=== PATIENT | female | born 1975 | race Caucasian/White ===

== ENCOUNTER 2017-11-16 08:31 | Inpatient (IN) | payer MEDICARE ==
[2017-11-16] MEDS ORDERED: CEFAZOLIN 1 GM/D5W RTU 1 GM/50 ML RTUPB IV ONE (08:36)
[2017-11-16] MEDS ORDERED: DIPH/PERTUSS(ACELL)/TETANUS VAC/PF 0.5 ML SYR (>=10YO) IM ONE (08:36)
--- NOTE | 2017-11-16 09:32 | ER Document Report ---
ED General - General Chief Complaint: Unresponsive Stated Complaint: UNRESPONSIVE Time Seen by Provider: 11/16/17 08:35 Mode of Arrival: Medic Information source: Law Enforcement, Emergency Med Personnel Cannot obtain history due to: Unstable vital signs, Altered mental status Notes: 50-year-old female noted to be a Yaritza Medina found on the side of the road core temp 84 presents confused by EMS. Patient is noted to have extensive abrasions contusions all throughout - HPI Onset: Just prior to arrival Onset/Duration: Sudden Quality of pain: No pain Severity: Severe Associated symptoms: Other Exacerbated by: Denies Relieved by: Denies Similar symptoms previously: No Recently seen / treated by doctor: No - Related Data Allergies/Adverse Reactions: No Known Allergies Allergy (Verified 11/16/17 12:36) Past Medical History - Social History Smoking Status: Never Smoker Cigarette use (# per day): No Chew tobacco use (# tins/day): No Smoking Education Provided: No Family History: None Patient has suicidal ideation: No Patient has homicidal ideation: No Renal/ Medical History: Denies: Hx Peritoneal Dialysis Review of Systems - Review of Systems Notes: PHYSICAL EXAMINATION: GENERAL: Cold to touch altered HEAD: Atraumatic, normocephalic. EYES: Pupils equal round and reactive to light, extraocular movements intact, conjunctiva are normal. ENT: Nares patent, oropharynx clear without exudates. Moist mucous membranes. NECK: Normal range of motion, supple without lymphadenopathy LUNGS: Breath sounds clear to auscultation bilaterally and equal. No wheezes rales or rhonchi. HEART: Regular rate and rhythm without murmurs ABDOMEN: Soft, nontender, nondistended abdomen. No guarding, no rebound. No masses appreciated. Female : deferred Musculoskeletal: Normal range of motion, no pitting or edema. No cyanosis. NEUROLOGICAL: Cranial nerves grossly intact. Patient not following commands normal sensory, motor exams PSYCH: Unable to assess. SKIN: Extensive abrasions contusions all throughout -: Yes ROS unobtainable due to patient's medical condition Physical Exam - Vital signs Vitals: Pulse Ox 98 11/16/17 08:33 Course - Re-evaluation Re-evalutation: 11/16/17 09:32 I have asked patient to be restrained given how altered she is, warm IV fluids have been started heating pad bear hugger heated blankets as well. Brumfield tem has been ordered 11/16/17 14:04 Patient's temperature is improved significantly, she is becoming more alert and oriented, please have seen her multiple times, she has been admitted to the hospitalist service, antibiotics have been started for urinary tract infection but I believe this may be drug related. Patient is noted to be in rhabdo and IV fluids have been given 4 liters 11/16/17 14:04 - Vital Signs Vital signs: Temp Pulse Resp BP Pulse Ox 86.5 F L 140 H 25 H 122/85 100 11/16/17 08:40 11/16/17 08:40 11/16/17 13:30 11/16/17 13:01 11/16/17 13:30 - Laboratory Result Diagrams: 11/16/17 08:38 11/16/17 08:38 Laboratory results interpreted by me: 11/16/17 11/16/17 11/16/17 08:38 08:38 08:38 WBC 31.4 H* RDW 14.6 H Band Neutrophils % 7 H Lymphocytes % (Manual) 6 L Abs Neuts (Manual) 26.4 H Abs Monocytes (Manual) 2.8 H Chloride 110 H Carbon Dioxide 15 L Creatinine 1.30 H Est GFR ( Amer) 52 L Est GFR (Non-Af Amer) 43 L Glucose 56 L AST 109 H Alkaline Phosphatase 136 H Creatine Kinase 3904 H CK-MB (CK-2) 18.30 H Urine Protein Urine Ketones Urine Blood Urine Nitrite 11/16/17 08:38 WBC RDW Band Neutrophils % Lymphocytes % (Manual) Abs Neuts (Manual) Abs Monocytes (Manual) Chloride Carbon Dioxide Creatinine Est GFR ( Amer) Est GFR (Non-Af Amer) Glucose AST Alkaline Phosphatase Creatine Kinase CK-MB (CK-2) Urine Protein 100 H Urine Ketones TRACE H Urine Blood MODERATE H Urine Nitrite POSITIVE H - Diagnostic Test Radiology reviewed: Image reviewed, Reports reviewed Critical Care Note - Critical Care Note Total time excluding time spent on procedures (mins): 45 Comments: 45 minutes of critical care time spent in direct contact evaluating and reevaluating the patient, treating symptoms, reviewing labs and studies and speaking with family and consultants excluding any procedures Discharge - Discharge Clinical Impression: Altered awareness, transient, Tachycardia Hypothermia Qualifiers: Encounter type: initial encounter Qualified Code(s): T68.XXXA - Hypothermia, initial encounter Acute renal failure Qualifiers: Acute renal failure type: unspecified Qualified Code(s): N17.9 - Acute kidney failure, unspecified Rhabdomyolysis Qualifiers: Rhabdomyolysis type: non-traumatic Qualified Code(s): M62.82 - Rhabdomyolysis Condition: Fair Disposition: ADMITTED INPATIENT Admitting Provider: Hospitalist Unit Admitted: [facility]
[2017-11-16] MEDS: NORMAL SALINE 1000 ML 1,000 ML IV PRN ×6 (09:47→13:45)
[2017-11-16 09:56] LABS: HEMATOCRIT 43.9 % (36.0-47.0); HEMOGLOBIN 14.2 g/dL (12.0-15.5); MEAN CORPUSCULAR HEMOGLOBIN 29.9 pg (27.0-33.4); MEAN CORPUSCULAR HGB CONC 32.4 g/dL (32.0-36.0); MEAN CORPUSCULAR VOLUME 92 fl (80-97); PLATELET COUNT 382 10^3/uL (150-450); RED BLOOD COUNT 4.76 10^6/uL (3.72-5.28); RED CELL DISTRIBUTION WIDTH 14.6 % (11.5-14.0)
[2017-11-16 10:11] LABS: ABSOLUTE LYMPHOCYTES# (MANUAL) 2.2 10^3/uL (0.5-4.7); ABSOLUTE MONOCYTES # (MANUAL) 2.8 10^3/uL (0.1-1.4); ABSOLUTE NEUTROPHILS# (MANUAL) 26.4 10^3/uL (1.7-8.2); BAND NEUTROPHILS % (MANUAL) 7 % (3-5); BASOPHILS % (MANUAL) 0 % (0-2); EOSINOPHILS % (MANUAL) 0 % (0-6); LYMPHOCYTES % (MANUAL) 6 % (13-45); MONOCYTES % (MANUAL) 9 % (3-13); SEGMENTED NEUTROPHILS % (MAN) 77 % (42-78); TOTAL CELLS COUNTED 100
[2017-11-16 10:12] LABS: ALANINE AMINOTRANSFERASE 46 U/L (9-52); ALBUMIN 4.9 g/dL (3.5-5.0); ALKALINE PHOSPHATASE 136 U/L (38-126); ANION GAP 19 (5-19); ASPARTATE AMINO TRANSFERASE 109 U/L (14-36); BILIRUBIN,DIRECT 0.4 mg/dL (0.0-0.4); BILIRUBIN,TOTAL 0.7 mg/dL (0.2-1.3); BLOOD UREA NITROGEN 10 mg/dL (7-20); CALCIUM 9.3 mg/dL (8.4-10.2); CARBON DIOXIDE 15 mmol/L (22-30); CHLORIDE 110 mmol/L (98-107); GLUCOSE 56 mg/dL (75-110); PLATELET COMMENT ADEQUATE; POTASSIUM 3.6 mmol/L (3.6-5.0); RBC MORPHOLOGY COMMENT NORMO-CYTIC/CHROMIC; SODIUM 143.9 mmol/L (137-145); TOTAL PROTEIN 8.1 g/dL (6.3-8.2)
[2017-11-16 10:13] LABS: APPEARANCE,URINE SLIGHTLY-CLOUDY; BILIRUBIN,URINE NEGATIVE (NEGATIVE); COLOR,URINE YELLOW; GLUCOSE, URINE NEGATIVE (NEGATIVE); KETONES,URINE TRACE mg/dL (NEGATIVE); LEUKOCYTE ESTERASE,URINE NEGATIVE (NEGATIVE); NITRITE,URINE POSITIVE (NEGATIVE); PROTEIN,URINE 100 mg/dL (NEGATIVE); URINE SPECIFIC GRAVITY 1.009; UROBILINOGEN,URINE NEGATIVE mg/dL (<2.0); WHITE BLOOD COUNT 31.4 10^3/uL (4.0-10.5)
[2017-11-16] MEDS ORDERED: CEFTRIAXONE INJ 1000 MG VIAL IV ONE (10:18)
[2017-11-16 10:23] LABS: CREATINE KINASE MB 18.3 ng/mL (<4.55); TROPONIN I 0.027 ng/mL
[2017-11-16 10:36] LABS: ALCOHOL < 10 mg/dL (NONE DETECTED); CREATINE KINASE 3904 U/L (30-135)
[2017-11-16 10:53] LABS: URINE AMPHETAMINES SCREEN NEGATIVE; URINE BARBITURATES SCREEN NEGATIVE; URINE BENZODIAZEPINES SCREEN NEGATIVE; URINE COCAINE SCREEN NEGATIVE; URINE MARIJUANA (THC) SCREEN UNCONFIRMED POSITIVE; URINE METHADONE SCREEN NEGATIVE; URINE PHENCYCLIDINE SCREEN NEGATIVE
--- NOTE | 2017-11-16 11:07 | RADIOLOGY REPORT (SQ) ---
EXAM DESCRIPTION: CT HEAD WITHOUT COMPLETED DATE/TIME: 11/16/2017 10:57 am REASON FOR STUDY: found altered, extensive injuries COMPARISON: None. TECHNIQUE: Axial images acquired through the brain without intravenous contrast. Images reviewed wi th bone, brain and subdural windows. Images stored on PACS. All CT scanners at this facility use dose modulation, iterative reconstruction, and/or weight based d osing when appropriate to reduce radiation dose to as low as reasonably achievable (ALARA). [facility]: Dose Right [facility]: CareDose [facility]: Dose Right [facility]: Teradose 4D [facility]: [employer] RADIATION DOSE: CT Rad equipment meets quality standard of care and radiation dose reduction techniq ues were employed. CTDIvol: 64.6 mGy. DLP: 1163 mGy-cm. mGy. LIMITATIONS: None. FINDINGS: VENTRICLES: Normal size and contour. CEREBRUM: No masses. No hemorrhage. No midline shift. No evidence for acute infarction. Normal gra y/white matter differentiation. No areas of low density in the white matter. CEREBELLUM: No masses. No hemorrhage. No alteration of density. No evidence for acute infarction. EXTRAAXIAL SPACES: No fluid collections. No masses. ORBITS AND GLOBE: No intra- or extraconal masses. Normal contour of globe without masses. CALVARIUM: No fracture. PARANASAL SINUSES: No fluid or mucosal thickening. SOFT TISSUES: No mass or hematoma. OTHER: No other significant finding. IMPRESSION: NORMAL BRAIN CT WITHOUT CONTRAST. EVIDENCE OF ACUTE STROKE: NO. COMMENT: Quality ID # [id number]: Final reports with documentation of one or more dose reduction techniques (e.g., Automated exposure control, adjustment of the mA and/or kV according to patient size, use of iterative reconstruction technique) TECHNICAL DOCUMENTATION: JOB ID: [id number] [employer]- All Rights Reserved Reading location - IP/workstation name: [email or web address]
--- NOTE | 2017-11-16 11:09 | RADIOLOGY REPORT (SQ) ---
EXAM DESCRIPTION: CT CERVICAL SPINE WITHOUT COMPLETED DATE/TIME: 11/16/2017 11:00 am REASON FOR STUDY: found altered, extensive injuries COMPARISON: None. TECHNIQUE: Axial images acquired through the cervical spine without intravenous contrast. Images re viewed with lung, soft tissue and bone windows. Reconstructed coronal and sagittal MPR images review ed. Images stored on PACS. All CT scanners at this facility use dose modulation, iterative reconstruction, and/or weight based d osing when appropriate to reduce radiation dose to as low as reasonably achievable (ALARA). [facility]: Dose Right [facility]: CareDose [facility]: Dose Right [facility]: Teradose 4D [facility]: [employer] RADIATION DOSE: CT Rad equipment meets quality standard of care and radiation dose reduction techniq ues were employed. CTDIvol: 26.1 mGy. DLP: 555 mGy-cm. mGy. LIMITATIONS: None. FINDINGS: ALIGNMENT: Reversal of lordotic curve. MINERALIZATION: Normal. VERTEBRAL BODIES: No fractures or dislocation. DISCS: Multilevel disc space narrowing with osteophytes. FACETS, LATERAL MASSES, POSTERIOR ELEMENTS: Facet arthropathy. No fractures. No dislocation. No ac [place] findings. HARDWARE: None in the spine. VISUALIZED RIBS: No fractures. LUNG APICES AND SOFT TISSUES: No significant or acute findings. OTHER: No other significant finding. IMPRESSION: CHRONIC DEGENERATIVE CHANGES. NO ACUTE FINDINGS. TECHNICAL DOCUMENTATION: JOB ID: [id number] Quality ID # [id number]: Final reports with documentation of one or more dose reduction techniques (e.g., Au tomated exposure control, adjustment of the mA and/or kV according to patient size, use of iterative reconstruction technique) 2010 [employer]- All Rights Reserved Reading location - IP/workstation name: [email or web address]
--- NOTE | 2017-11-16 11:27 | RADIOLOGY REPORT (SQ) ---
EXAM DESCRIPTION: CT CHEST WITH COMPLETED DATE/TIME: 11/16/2017 11:13 am REASON FOR STUDY: found altered, extensive injuries COMPARISON: None. TECHNIQUE: CT scan of the chest performed using helical scanning technique with dynamic intravenous contrast injection. Images reviewed with lung, soft tissue and bone windows. Reconstructed coronal and sagittal MPR images reviewed. All images stored on PACS. All CT scanners at this facility use dose modulation, iterative reconstruction, and/or weight based d osing when appropriate to reduce radiation dose to as low as reasonably achievable (ALARA). [facility]: Dose Right [facility]: CareDose [facility]: Dose Right [facility]: Teradose 4D [facility]: [employer] CONTRAST TYPE AND DOSE: See separate report. RENAL FUNCTION: See separate report. RADIATION DOSE: . LIMITATIONS: None. FINDINGS: LUNGS AND PLEURA: No opacities, nodules, masses. No pneumothorax. No effusions. HILAR AND MEDIASTINAL STRUCTURES: No identified masses or abnormal nodes. HEART AND VASCULAR STRUCTURES: No aneurysm or dissection. No central pulmonary emboli. No pericardi al effusion. HARDWARE: None in the chest. UPPER ABDOMEN: See separate report of the CT of the abdomen. THYROID AND OTHER SOFT TISSUES: No masses. No adenopathy. BONES: Several chronic rib fractures. No definite acute rib fracture. OTHER: No other significant finding. IMPRESSION: No acute findings in the chest. TECHNICAL DOCUMENTATION: JOB ID: [id number] Quality ID # [id number]: Final reports with documentation of one or more dose reduction techniques (e.g., Au tomated exposure control, adjustment of the mA and/or kV according to patient size, use of iterative reconstruction technique) 2010 [employer]- All Rights Reserved Reading location - IP/workstation name: [email or web address]
--- NOTE | 2017-11-16 11:31 | RADIOLOGY REPORT (SQ) ---
EXAM DESCRIPTION: CT ABD/PELVIS WITH IV ONLY COMPLETED DATE/TIME: 11/16/2017 11:13 am REASON FOR STUDY: found altered, extensive injuries COMPARISON: None. TECHNIQUE: CT scan of the abdomen and pelvis performed using helical scanning technique with dynamic intravenous contrast injection. No oral contrast. Images reviewed with lung, soft tissue, and bone windows. Reconstructed coronal and sagittal MPR images reviewed. Delayed images for evaluation of the urinary system also acquired. All images stored on PACS. All CT scanners at this facility use dose modulation, iterative reconstruction, and/or weight based d osing when appropriate to reduce radiation dose to as low as reasonably achievable (ALARA). [facility]: Dose Right [facility]: CareDose [facility]: Dose Right [facility]: Teradose 4D [facility]: [employer] CONTRAST TYPE AND DOSE: contrast/concentration: Isovue 370.00 mg/ml; Total Contrast Delivered: 100.0 ml; Total Saline Delivered: 72.0 ml RENAL FUNCTION: GFR > 60. RADIATION DOSE: CT Rad equipment meets quality standard of care and radiation dose reduction techniq ues were employed. CTDIvol: 18.0 - 20.9 mGy. DLP: 2451 mGy-cm.. LIMITATIONS: None. FINDINGS: LOWER CHEST: See separate report of the CT of the chest. LIVER: Normal size. No masses. No dilated ducts. SPLEEN: Normal size. No focal lesions. PANCREAS: No masses. No significant calcifications. No adjacent inflammation or peripancreatic fluid collections. Pancreatic duct not dilated. GALLBLADDER: No identified stones by CT criteria. No inflammatory changes to suggest cholecystitis. ADRENAL GLANDS: No significant masses or asymmetry. RIGHT KIDNEY AND URETER: No solid masses. No significant calcifications. No hydronephrosis or hyd roureter. LEFT KIDNEY AND URETER: No solid masses. No significant calcifications. No hydronephrosis or hydr oureter. AORTA AND VESSELS: No aneurysm. No dissection. Renal arteries, SMA, celiac without stenosis. RETROPERITONEUM: No retroperitoneal adenopathy, hemorrhage or masses. BOWEL AND PERITONEAL CAVITY: No masses or inflammatory changes. No free fluid or peritoneal masses. APPENDIX: Normal. PELVIS: Brumfield catheter in the urinary bladder. ABDOMINAL WALL: No masses. No hernias. BONES: No significant or acute findings. OTHER: No other significant finding. IMPRESSION: No acute findings in the abdomen or pelvis. TECHNICAL DOCUMENTATION: JOB ID: [id number] Quality ID # [id number]: Final reports with documentation of one or more dose reduction techniques (e.g., Au tomated exposure control, adjustment of the mA and/or kV according to patient size, use of iterative reconstruction technique) 2010 [employer]- All Rights Reserved Reading location - IP/workstation name: [email or web address]
[2017-11-16] MEDS ORDERED: IPRATROPIUM/ALBUTEROL 0.5-2.5 MG/3 ML AMPUL NEB PRN (14:54)
[2017-11-16] MEDS ORDERED: DEXTROSE 5%-1/2 NORMAL SALINE 1,000 ML IV PRN (14:54)
[2017-11-16] MEDS ORDERED: ONDANSETRON HCL INJ/PF 4 MG/2 ML SDV IV PRN (14:54)
--- NOTE | 2017-11-16 15:36 | PDOC H&P ---
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 Minutes Elimination Elimination Elimination Position Change Q 15 Minutes Yes Level of Consciousness-Check Q 15 Confused Confused Minutes 11/16/17 11/16/17 11/16/17 10:00 10:15 10:30 Violent Behavior Restraint Status Continued Continued Continued Nursing Unit Patient is Located On ED ED ED Indications for Initiating Restraints Dangerous Physical Harm Physical Harm Behavior to Self to Self Type of Restraint Locking Cuff Locking Cuff Locking Cuff Restraint Restraint Restraint Unsuccessful measures attempted Increased Increased supervision supervision Reduces stimuli Reduces stimuli Information on Use of Restraints Given No-Patient To Impaired No-Family Unavailable Restraints Intact-Check Q 15 Minutes Yes Yes Yes Visual Assessment-Check Q 15 Minutes Yes Yes Yes Respirations WNL-Check Q 15 Minutes Yes Yes Yes Skin Integrity Inspected Q 15 Minutes Yes Yes Yes CMS Check of Restrained Limbs Q 15 Yes Yes Yes Minutes Rotate Restrained Release for ROM Q 15 Yes Yes Yes Minutes if Possible ADL's Offered Q 15 Minutes Yes Yes Yes ADL's Offered Q 15 Minutes Elimination Elimination Elimination Position Change Q 15 Minutes Yes Level of Consciousness-Check Q 15 Confused Confused Confused Minutes 11/16/17 11/16/17 10:45 11:00 Violent Behavior Restraint Status Continued Discontinued Nursing Unit Patient is Located On ED ED Indications for Initiating Restraints Physical Harm to Self Type of Restraint Locking Cuff Locking Cuff Restraint Restraint Unsuccessful measures attempted Increased supervision Reduces stimuli Information on Use of Restraints Given No-Patient To Impaired No-Family Unavailable Restraints Intact-Check Q 15 Minutes Yes Visual Assessment-Check Q 15 Minutes Yes Respirations WNL-Check Q 15 Minutes Yes Skin Integrity Inspected Q 15 Minutes Yes CMS Check of Restrained Limbs Q 15 Yes Minutes Rotate Restrained Release for ROM Q 15 Yes Minutes if Possible ADL's Offered Q 15 Minutes Yes ADL's Offered Q 15 Minutes Position Change Q 15 Minutes Yes Level of Consciousness-Check Q 15 Confused Minutes Status Rounds Assessment Start: 11/16/17 09:14 Freq: Q1 Status: Active Activity Type Activity Date Activity User E-Sign Co-Sign Detail Recorded Client Recorded Date Recorded By Document 11/16/17 12:07 DOX [email or web address] 11/16/17 12:09 DOX Document 11/16/17 14:29 DOX [email or web address] 11/16/17 14:31 DOX 11/16/17 11/16/17 12:07 14:29 ED Status Rounds Hourly Rounding Complete Yes Yes Call [place] within Reach Yes Yes Patient Location Patient in Room Patient in Room Other Location given PO fluids Patient Activity Resting Awake Peacefully Patient Condition No Changes From Previous Assessment 11/16/17 12:08 ED Nursing Note by SHEFALI VERGARA pt removed from restraints, states she wont mess woth tubes, pt given PO fluids , tolerated well, pt updated on admission, states she understand, cooperative and calm at this time,, remains on monitor. Initialized on 11/16/17 12:08 - END OF NOTE 11/16/17 14:29 ED Nursing Note by SHEFALI VERGARA Hospitalist leaving BS at this time, pt alert and cooperative warm fluids DC'd, pt remains on monitor, pt still intermittently confused, but able to hold conversation, pt is delusional. Initialized on 11/16/17 14:29 - END OF NOTE [employer] Start: 11/16/17 09:14 Freq: Status: Active Activity Type Activity Date Activity User E-Sign Co-Sign Detail Recorded Client Recorded Date Recorded By Document 11/16/17 08:33 DOX [email or web address] 11/16/17 09:34 DOX Document 11/16/17 08:34 DOX [email or web address] 11/16/17 09:34 DOX Document 11/16/17 08:35 DOX [email or web address] 11/16/17 09:34 DOX Document 11/16/17 09:03 DOX [email or web address] 11/16/17 09:34 DOX Document 11/16/17 09:06 DOX [email or web address] 11/16/17 09:34 DOX Document 11/16/17 09:07 DOX [email or web address] 11/16/17 09:34 DOX Document 11/16/17 09:10 DOX [email or web address] 11/16/17 09:34 DOX Document 11/16/17 09:11 DOX [email or web address] 11/16/17 09:34 DOX Document 11/16/17 10:00 DOX [email or web address] 11/16/17 10:44 DOX Document 11/16/17 10:01 DOX [email or web address] 11/16/17 10:44 DOX Document 11/16/17 11:17 DOX [email or web address] 11/16/17 11:30 DOX Document 11/16/17 11:25 DOX [email or web address] 11/16/17 11:30 DOX Document 11/16/17 11:26 DOX [email or web address] 11/16/17 11:30 DOX Document 11/16/17 12:00 DOX [email or web address] 11/16/17 12:07 DOX Document 11/16/17 12:01 DOX [email or web address] 11/16/17 12:07 DOX Document 11/16/17 12:30 DOX [email or web address] 11/16/17 12:34 DOX Document 11/16/17 13:00 DOX [email or web address] 11/16/17 13:37 DOX Document 11/16/17 13:01 DOX [email or web address] 11/16/17 13:37 DOX Document 11/16/17 13:30 DOX [email or web address] 11/16/17 13:37 DOX 11/16/17 11/16/17 11/16/17 08:33 08:34 08:35 Core Temperature (97.0 F-100.4 F) Heart Rate (Monitors) 141 ED Monitor Capture Respiratory Rate (12-20 breaths/min) 29 33 Pulse Oximetry (92-100) 98 100 Blood Pressure (100/60-125/85 mm Hg) 116/99 Blood Pressure Mean (mm Hg) 104 11/16/17 11/16/17 11/16/17 09:03 09:06 09:07 Core Temperature (97.0 F-100.4 F) Heart Rate (Monitors) 155 156 156 ED Monitor Capture Respiratory Rate (12-20 breaths/min) 41 34 35 Pulse Oximetry (92-100) Blood Pressure (100/60-125/85 mm Hg) Blood Pressure Mean (mm Hg) 11/16/17 11/16/17 11/16/17 09:10 09:11 10:00 Core Temperature (97.0 F-100.4 F) 92.4 F Heart Rate (Monitors) 155 136 138 ED Monitor Capture Respiratory Rate (12-20 breaths/min) 28 21 15 Pulse Oximetry (92-100) 99 Blood Pressure (100/60-125/85 mm Hg) 124/79 Blood Pressure Mean (mm Hg) 94 11/16/17 11/16/17 11/16/17 10:01 11:17 11:25 Core Temperature (97.0 F-100.4 F) 92.5 F 95.7 F Heart Rate (Monitors) 146 140 144 ED Monitor Capture Respiratory Rate (12-20 breaths/min) 16 31 Pulse Oximetry (92-100) 99 Blood Pressure (100/60-125/85 mm Hg) 120/65 Blood Pressure Mean (mm Hg) 83 11/16/17 11/16/17 11/16/17 11:26 12:00 12:01 Core Temperature (97.0 F-100.4 F) 95.7 F 96.2 F 96.2 F Heart Rate (Monitors) 151 138 143 ED Monitor Capture Respiratory Rate (12-20 breaths/min) 27 26 22 Pulse Oximetry (92-100) 100 93 99 Blood Pressure (100/60-125/85 mm Hg) 113/81 104/80 Blood Pressure Mean (mm Hg) 91 88 11/16/17 11/16/17 11/16/17 12:30 13:00 13:01 Core Temperature (97.0 F-100.4 F) 96.8 F 97.4 F 97.5 F Heart Rate (Monitors) 142 86 88 ED Monitor Capture Respiratory Rate (12-20 breaths/min) 27 18 26 Pulse Oximetry (92-100) 97 100 100 Blood Pressure (100/60-125/85 mm Hg) 122/85 Blood Pressure Mean (mm Hg) 97 11/16/17 13:30 Core Temperature (97.0 F-100.4 F) 97.7 F Heart Rate (Monitors) 95 ED Monitor Capture Respiratory Rate (12-20 breaths/min) 25 Pulse Oximetry (92-100) 100 Blood Pressure (100/60-125/85 mm Hg) Blood Pressure Mean (mm Hg) Triage- Altered Mental Status Start: 11/16/17 09:14 Freq: NOW Status: Complete Activity Type Activity Date Activity User E-Sign Co-Sign Detail Recorded Client Recorded Date Recorded By Document 11/16/17 08:40 DOX [email or web address] 11/16/17 09:28 DOX 11/16/17 08:40 Shiva Coma Scale Eye Opening Spontaneous Verbal Response Confused Motor Response Obeys Commands Coma Scale Total (15 points) 14 HPI- Altered Mental Status Onset unknown Symptoms Constant Duration Continues in ED Confirmed onset No Character of altered mental status Confused Arousable To Name Was STROKE ALERT Called No Baseline cognitive Alert but confused Baseline gait Walks w/o assistance Infection Control Screen CRE Precaution Screen Negative History Isolation Precautions Standard Triage Nursing Assessment Allergies Verified No Seeking Treatment Today For Mental Health Patient Is there family present? No High Risk Screen Confused High Risk Safety Intervention Patient Door Open Thoughts of by Suicide in the Last No 30 Days Homicidial Thoughts in the Last 30 Days No Suicide Moderate Risk Factors Mental Illness Suicide High Risk Factors Dramatic Mood Changes Smoking Status Unknown if Ever Smoked Medication Reconciliation Form Initiated/Needs Completed Peritoneal Dialysis Patient No Vital Signs (ED) Start: 11/16/17 08:31 Freq: Q1H Status: Active Activity Type Activity Date Activity User E-Sign Co-Sign Detail Recorded Client Recorded Date Recorded By Document 11/16/17 08:40 DOX [email or web address] 11/16/17 09:19 DOX 11/16/17 08:40 Vital Signs Temperature (97.0 F-100.4 F) 86.5 F Peripheral -Pulse Rate (60-100 beats/min) 140 -Method Monitor Respiratory Rate (12-20 breaths/min) 26 Oxygen Delivery Method (includes room Room Air air) Left Upper Arm -Blood Pressure (100/60-125/85 mm Hg) 116/69 -Blood Pressure Mean (mm Hg) 84 -Source Automatic Cuff -Position Supine Weight (1 kg-500 kg) 87.2 kg Impressions: Abdomen/Pelvis CT 11/16/17 08:35 IMPRESSION: No acute findings in the abdomen or pelvis. Cervical Spine CT 11/16/17 08:35 IMPRESSION: CHRONIC DEGENERATIVE CHANGES. NO ACUTE FINDINGS. Chest CT 11/16/17 08:35 IMPRESSION: No acute findings in the chest. Head CT 11/16/17 08:35 IMPRESSION: NORMAL BRAIN CT WITHOUT CONTRAST. EVIDENCE OF ACUTE STROKE: NO. Assessment & Plan - Diagnosis (1) Systemic inflammatory response syndrome (SIRS) Is this a current diagnosis for this admission?: Yes Plan: I have no specific etiology for patient's leukocytosis especially considering that her white count was 7000 yesterday. Be placed on empiric antibiotics after blood cultures drawn. 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 Will follow their recommendations in terms of her medication. I believe this patient's problems, are more psychotic than medical (4) Acute renal failure Qualifiers: Acute renal failure type: unspecified Qualified Code(s): N17.9 - Acute kidney failure, unspecified Is this a current diagnosis for this admission?: Yes Plan: Likely secondary to dehydration this should resolve with adequate IV fluids (5) Hypothermia Qualifiers: Encounter type: initial encounter Qualified Code(s): T68.XXXA - Hypothermia , initial encounter Is this a current diagnosis for this admission?: Yes Plan: Likely secondary to environmental etiology as patient was picked up from outside. She has responded nicely to warming Check thyroid function (6) Rhabdomyolysis Qualifiers: Rhabdomyolysis type: non-traumatic Qualified Code(s): M62.82 - Rhabdomyolysis Is this a current diagnosis for this admission?: Yes Plan: We will monitor CPK and continue judicious IV fluids (7) Tachycardia Is this a current diagnosis for this admission?: Yes Plan: Secondary to dehydration - Time Time Spent: 30 to 50 Minutes Medications reviewed and adjusted accordingly: Yes Anticipated discharge: Home Within: within 72 hours - Inpatient Certification Based on my medical assessment, after consideration of the patient's comorbidities, presenting symptoms, or acuity I expect that the services needed warrant INPATIENT care.: Yes I certify that my determination is in accordance with my understanding of Medicare's requirements for reasonable and necessary INPATIENT services [42 CFR 412.3e].: Yes Medical Necessity: Need For IV Fluids, Risk of Complication if Not Cared For in Hospital
[2017-11-16] MEDS: DEXTROSE 5%-1/2 NORMAL SALINE 1,000 ML IV PRN (17:33)
[2017-11-16] MEDS: FAMOTIDINE 20 MG TABLET PO SCH (22:10)
[2017-11-17] MEDS: DEXTROSE 5%-1/2 NORMAL SALINE 1,000 ML IV PRN (04:25)
[2017-11-17 07:12] LABS: ALANINE AMINOTRANSFERASE 60 U/L (9-52); ALBUMIN 3.5 g/dL (3.5-5.0); ALKALINE PHOSPHATASE 104 U/L (38-126); ANION GAP 10 (5-19); ASPARTATE AMINO TRANSFERASE 107 U/L (14-36); BILIRUBIN,DIRECT 0.1 mg/dL (0.0-0.4); BLOOD UREA NITROGEN 3 mg/dL (7-20); CALCIUM 9.2 mg/dL (8.4-10.2); CARBON DIOXIDE 20 mmol/L (22-30); CHLORIDE 112 mmol/L (98-107); GLUCOSE 106 mg/dL (75-110); POTASSIUM 3.2 mmol/L (3.6-5.0); SODIUM 141.8 mmol/L (137-145); TOTAL PROTEIN 5.6 g/dL (6.3-8.2)
[2017-11-17 07:17] LABS: ABSOLUTE MONOCYTES (AUTO) 0.9 10^3/uL (0.1-1.4); ABSOLUTE NEUT (AUTO) 9.8 10^3/uL (1.7-8.2); BASOPHILS % (AUTO) 0.2 % (0-2); EOSINOPHILS % (AUTO) 0.2 % (0-6); HEMATOCRIT 33.7 % (36.0-47.0); LYMPHOCYTES % (AUTO) 8.5 % (13-45); MEAN CORPUSCULAR HEMOGLOBIN 30.5 pg (27.0-33.4); MEAN CORPUSCULAR HGB CONC 34.1 g/dL (32.0-36.0); MEAN CORPUSCULAR VOLUME 89 fl (80-97); MONOCYTES % (AUTO) 7.3 % (3-13); PLATELET COUNT 254 10^3/uL (150-450); RED BLOOD COUNT 3.78 10^6/uL (3.72-5.28); RED CELL DISTRIBUTION WIDTH 14.6 % (11.5-14.0); SEGMENTED NEUTROPHILS % (AUTO) 83.8 % (42-78); TOTAL CELLS COUNTED % (AUTO) 100 %; WHITE BLOOD COUNT 11.7 10^3/uL (4.0-10.5)
[2017-11-17 07:21] LABS: HEMOGLOBIN 11.5 g/dL (12.0-15.5)
[2017-11-17 07:42] LABS: CREATINE KINASE 4538 U/L (30-135)
[2017-11-17] MEDS: FAMOTIDINE 20 MG TABLET PO SCH (10:12)
[2017-11-17] MEDS: DOCUSATE SODIUM 100 MG CAPSULE PO SCH (10:12)
[2017-11-17] MEDS: CEFTRIAXONE 2 GM/D5W RTU 2 GM/50 ML RTUPB IV SCH (10:13)
[2017-11-17] MEDS: ENOXAPARIN SODIUM INJ 40 MG/0.4 ML DISP.SYRIN SUBCUT SCH (10:15)
[2017-11-17] MEDS: OLANZAPINE 5 MG TAB.RAPDIS PO SCH (15:30)
--- NOTE | 2017-11-17 15:42 | PDOC PROGRESS REPORT ---
Subjective Progress Note for:: 11/17/17 Subjective:: Patient awake and alert but says she is still confused and unable to remember any preceding events or recent events She remained stable during the night and no new issues for now Reason For Visit: ENCEPHALOPATHY,PSYCHOSIS,LEUKOCYTOSIS,HYPOTHERMIA Physical Exam Vital Signs: Temp Pulse Resp BP Pulse Ox 98.9 F 89 30 H 109/80 98 11/17/17 02:07 11/17/17 08:39 11/17/17 14:01 11/17/17 14:01 11/17/17 14:01 Intake & Output 11/16/17 11/17/17 11/18/17 06:59 06:59 06:59 Intake Total 6500 Output Total 60784 3100 Balance -5400 -3100 General appearance: PRESENT: no acute distress, well-developed, well-nourished Head exam: PRESENT: atraumatic Ear exam: PRESENT: normal external ear exam Respiratory exam: PRESENT: clear to auscultation keisha. ABSENT: rales, rhonchi, wheezes Cardiovascular exam: PRESENT: RRR. ABSENT: diastolic murmur, rubs, systolic murmur Pulses: PRESENT: normal dorsalis pedis pul GI/Abdominal exam: PRESENT: normal bowel sounds, soft. ABSENT: distended, guarding, mass, organolmegaly, rebound, tenderness Rectal exam: PRESENT: deferred Extremities exam: PRESENT: full ROM. ABSENT: clubbing Neurological exam: PRESENT: alert, awake. ABSENT: oriented to time, oriented to situation, motor sensory deficit Psychiatric exam: PRESENT: flat affect Skin exam: PRESENT: abrasion, other - Numerous abrasions and soft tissue contusions especially right lower extremity around the knee joint but no open wounds seen. She also has numerous abrasions on upper abdominal wall as well as in her breast. Results Laboratory Results: 11/17/17 06:41 11/17/17 06:41 11/17/17 11/17/17 06:41 06:41 WBC 11.7 H RBC 3.78 Hgb 11.5 L D Hct 33.7 L MCV 89 MCH 30.5 MCHC 34.1 RDW 14.6 H Plt Count 254 Seg Neutrophils % 83.8 H Lymphocytes % 8.5 L Monocytes % 7.3 Eosinophils % 0.2 Basophils % 0.2 Absolute Neutrophils 9.8 H Absolute Lymphocytes 1.0 Absolute Monocytes 0.9 Absolute Eosinophils 0.0 Absolute Basophils 0.0 Sodium 141.8 Potassium 3.2 L Chloride 112 H Carbon Dioxide 20 L Anion Gap 10 BUN 3 L Creatinine 0.80 Est GFR ( Amer) > 60 Est GFR (Non-Af Amer) > 60 Glucose 106 Calcium 9.2 Total Bilirubin 1.0 AST 107 H ALT 60 H Alkaline Phosphatase 104 Total Protein 5.6 L Albumin 3.5 11/17/17 06:41 Creatine Kinase 4538 H Impressions: Abdomen/Pelvis CT 11/16/17 08:35 IMPRESSION: No acute findings in the abdomen or pelvis. Cervical Spine CT 11/16/17 08:35 IMPRESSION: CHRONIC DEGENERATIVE CHANGES. NO ACUTE FINDINGS. Chest CT 11/16/17 08:35 IMPRESSION: No acute findings in the chest. Head CT 11/16/17 08:35 IMPRESSION: NORMAL BRAIN CT WITHOUT CONTRAST. EVIDENCE OF ACUTE STROKE: NO. Assessment & Plan - Diagnosis (1) Systemic inflammatory response syndrome (SIRS) Is this a current diagnosis for this admission?: Yes Plan: Although she does have a UTI I doubt that this was the etiology of her white count of 30,000 continue to believe this is small secondary to inflammatory response. 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 Psychotic features: with psychotic features Is this a current diagnosis for this admission?: Yes Plan: She needs psych follow-up and management once she is medically cleared She likely needs to be restarted on her psych meds nelia (4) Acute renal failure Qualifiers: Acute renal failure type: unspecified Qualified Code(s): N17.9 - Acute kidney failure, unspecified Is this a current diagnosis for this admission?: Yes Plan: Likely secondary to dehydration - Resolved (5) Hypothermia Qualifiers: Encounter type: initial encounter Qualified Code(s): T68.XXXA - Hypothermia , initial encounter Is this a current diagnosis for this admission?: Yes Plan: Likely secondary to environmental etiology as patient was picked up from outside. She has responded nicely to warming C (6) Rhabdomyolysis Qualifiers: Rhabdomyolysis type: non-traumatic Qualified Code(s): M62.82 - Rhabdomyolysis Is this a current diagnosis for this admission?: Yes Plan: CPK hopefully should peak soon. Will continue judicious IV fluids (7) Tachycardia Is this a current diagnosis for this admission?: Yes Plan: Improved (8) UTI (urinary tract infection) Qualifiers: Urinary tract infection type: acute cystitis Hematuria presence: without hematuria Qualified Code(s): N30.00 - Acute cystitis without hematuria Is this a current diagnosis for this admission?: Yes Plan: On empiric ceftriaxone - Time Time Spent with patient: 15-24 minutes Anticipated discharge: Home Within: within 72 hours - Inpatient Certification Based on my medical assessment, after consideration of the patient's comorbidities, presenting symptoms, or acuity I expect that the services needed warrant INPATIENT care.: Yes I certify that my determination is in accordance with my understanding of Medicare's requirements for reasonable and necessary INPATIENT services [42 CFR 412.3e].: Yes Medical Necessity: Need For IV Fluids, Risk of Complication if Not Cared For in Hospital
[2017-11-17] MEDS: LORAZEPAM 0.5 MG TABLET PO PRN ×2 (15:49→15:51)
[2017-11-17] MEDS ORDERED: ZIPRASIDONE MESYLATE INJ/PF 20 MG SDV IM ONE (15:59)
[2017-11-17] MEDS ORDERED: POTASSIUM CHLORIDE 10 MEQ TABLET.SA PO ONE (16:00)
--- NOTE | 2017-11-17 16:33 | Progress Note ---
Provider Note Provider Note: Patient apparently became very agitated and was hallucinating as well as being combative. Patient insists any full manic mood. Had been seen by psych yesterday but I was unable to locate the recommendations. I was called by the ED nurse and advised Geodon 10 mg to be given to patient stat. On my getting to the ED from patient to be crouched in a corner, seemingly afraid of something. I did talk to Dr. Smith who updated me on this patient's psychiatric history. Patient was threatening to leave AMA but she is in no condition to do so as she is a danger to herself and probably to the community. She was thus involuntarily committed. Dr. Smith also recommend starting her on Zyprexa, Thorazine scheduled and as needed as well as Cogentin. This have been ordered and will continue to use either Haldol or Geodon as needed as needed. Patient safety she has also been placed in a 4 point restraint. Once patient is medically cleared she will need to likely inpatient psych management.
[2017-11-17] MEDS: CEPHALEXIN 500 MG CAPSULE PO SCH (18:00)
[2017-11-17] MEDS: CHLORPROMAZINE HCL 25 MG TABLET PO SCH ×2 (18:00→18:46)
[2017-11-18] MEDS ORDERED: CHLORPROMAZINE HCL 50 MG TABLET ONE (00:39)
[2017-11-18] MEDS ORDERED: OLANZAPINE 5 MG TABLET ONE ×2 (00:39→06:07)
[2017-11-18] MEDS: ZOLPIDEM TARTRATE 5 MG TABLET PO PRN ×2 (00:44→22:45)
[2017-11-18] MEDS: CHLORPROMAZINE HCL 50 MG TABLET PO PRN ×2 (00:44→22:55)
[2017-11-18] MEDS: FAMOTIDINE 20 MG TABLET PO SCH ×3 (04:14→22:45)
[2017-11-18] MEDS: OLANZAPINE 5 MG TAB.RAPDIS PO SCH ×4 (04:14→22:45)
[2017-11-18 05:33] LABS: HEMATOCRIT 29.5 % (36.0-47.0); HEMOGLOBIN 9.9 g/dL (12.0-15.5); MEAN CORPUSCULAR HEMOGLOBIN 30.3 pg (27.0-33.4); MEAN CORPUSCULAR HGB CONC 33.6 g/dL (32.0-36.0); MEAN CORPUSCULAR VOLUME 90 fl (80-97); PLATELET COUNT 170 10^3/uL (150-450); RED BLOOD COUNT 3.27 10^6/uL (3.72-5.28); RED CELL DISTRIBUTION WIDTH 14.9 % (11.5-14.0); WHITE BLOOD COUNT 5.7 10^3/uL (4.0-10.5)
[2017-11-18 05:39] LABS: ANION GAP 8 (5-19); CALCIUM 8.9 mg/dL (8.4-10.2); CARBON DIOXIDE 25 mmol/L (22-30); CHLORIDE 110 mmol/L (98-107); GLUCOSE 75 mg/dL (75-110); SODIUM 143.3 mmol/L (137-145)
[2017-11-18 05:44] LABS: BLOOD UREA NITROGEN < 2 mg/dL (7-20)
[2017-11-18] MEDS: DEXTROSE 5%-1/2 NORMAL SALINE 1,000 ML IV PRN ×2 (06:21→15:45)
[2017-11-18 06:28] LABS: POTASSIUM 2.6 mmol/L (3.6-5.0)
[2017-11-18] MEDS ORDERED: POTASSIUM CHLORIDE 10 MEQ TABLET.SA PO ONE (07:00)
[2017-11-18 07:24] LABS: CREATINE KINASE 4463 U/L (30-135)
[2017-11-18] MEDS ORDERED: INFLUENZA ADLT QUAD (36MOS+) 2017-18 VAC 0.5 ML SYR IM PRN (08:29)
[2017-11-18] MEDS: POTASSIUM CHLORIDE 20 MEQ/50 ML RTU IV SCH ×2 (08:55→13:02)
[2017-11-18] MEDS: ENOXAPARIN SODIUM INJ 40 MG/0.4 ML DISP.SYRIN SUBCUT SCH (11:15)
[2017-11-18] MEDS: BENZTROPINE MESYLATE 1 MG TABLET PO SCH (11:16)
[2017-11-18] MEDS: DOCUSATE SODIUM 100 MG CAPSULE PO SCH (11:16)
[2017-11-18] MEDS: CEFTRIAXONE 2 GM/D5W RTU 2 GM/50 ML RTUPB IV SCH (11:22)
[2017-11-18] MEDS ORDERED: POTASSIUM CHLORIDE 20 MEQ/50 ML RTU IV ONE (12:00)
[2017-11-18] MEDS: CHLORPROMAZINE HCL 25 MG TABLET PO SCH ×2 (12:58→17:20)
[2017-11-18] MEDS: ACETAMINOPHEN 325 MG TABLET PO PRN (13:01)
[2017-11-18 14:08] LABS: PATH REVIEW PATHOLOGIST REVIEWED
--- NOTE | 2017-11-18 17:35 | PDOC PROGRESS REPORT ---
Subjective Progress Note for:: 11/18/17 Subjective:: Patient awake and alert but says she is still confused and unable to remember any preceding events or recent events She remained stable during the night and has remained calm but still confabulating Reason For Visit: ENCEPHALOPATHY,PSYCHOSIS,LEUKOCYTOSIS,HYPOTHERMIA Physical Exam Vital Signs: Temp Pulse Resp BP Pulse Ox 99.4 F 88 16 105/69 95 11/18/17 16:18 11/18/17 16:18 11/18/17 16:18 11/18/17 16:18 11/18/17 16:18 Intake & Output 11/17/17 11/18/17 11/19/17 06:59 06:59 06:59 Intake Total 6500 Output Total 31159 3100 Balance -5400 -3100 General appearance: PRESENT: no acute distress, obese, well-developed Head exam: PRESENT: atraumatic Ear exam: PRESENT: normal external ear exam Neck exam: ABSENT: carotid bruit, JVD, lymphadenopathy, thyromegaly GI/Abdominal exam: PRESENT: normal bowel sounds, soft. ABSENT: distended, guarding, mass, organolmegaly, rebound, tenderness Rectal exam: PRESENT: deferred Psychiatric exam: ABSENT: suicidal ideation Focused psych exam: PRESENT: delusional, flight of ideas, paranoid Skin exam: PRESENT: abrasion, erythema, rash, skin tears, other - multiple abrasions, echymosis, on abdomen and especially on knees, lower extremity Results Laboratory Results: 11/18/17 04:34 11/18/17 04:34 11/18/17 11/18/17 11/18/17 04:34 04:34 04:34 WBC 5.7 RBC 3.27 L Hgb 9.9 L Hct 29.5 L MCV 90 MCH 30.3 MCHC 33.6 RDW 14.9 H Plt Count 170 Sodium 143.3 Potassium 2.6 L* Chloride 110 H Carbon Dioxide 25 Anion Gap 8 BUN < 2 L Creatinine 0.77 Est GFR ( Amer) > 60 Est GFR (Non-Af Amer) > 60 Glucose 75 Calcium 8.9 Magnesium 2.3 11/17/17 11/18/17 06:41 04:34 Creatine Kinase 4538 H 4463 H Impressions: Abdomen/Pelvis CT 11/16/17 08:35 IMPRESSION: No acute findings in the abdomen or pelvis. Cervical Spine CT 11/16/17 08:35 IMPRESSION: CHRONIC DEGENERATIVE CHANGES. NO ACUTE FINDINGS. Chest CT 11/16/17 08:35 IMPRESSION: No acute findings in the chest. Head CT 11/16/17 08:35 IMPRESSION: NORMAL BRAIN CT WITHOUT CONTRAST. EVIDENCE OF ACUTE STROKE: NO. Assessment & Plan - Diagnosis (1) Systemic inflammatory response syndrome (SIRS) Is this a current diagnosis for this admission?: Yes Plan: Although she does have a UTI I doubt that this was the etiology of her white count of 30,000 continue to believe this is SIRS. Wbc down to normal (2) Acute metabolic encephalopathy Is this a current diagnosis for this admission?: Yes Plan: patient appears to be back to baseline of psychosis. I talked to Dr. 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 Psych follow-up and evaluation and adjustments of her medications as needed by psych (4) Acute renal failure Qualifiers: Acute renal failure type: unspecified Qualified Code(s): N17.9 - Acute kidney failure, unspecified Is this a current diagnosis for this admission?: Yes Plan: Likely secondary to dehydration - Resolved (5) Rhabdomyolysis Qualifiers: Rhabdomyolysis type: non-traumatic Qualified Code(s): M62.82 - Rhabdomyolysis Is this a current diagnosis for this admission?: Yes Plan: CPK hopefully should peak soon as it is still rising.. Will continue judicious IV fluids monitor kidney function as well as CPK (6) Hypothermia Qualifiers: Encounter type: initial encounter Qualified Code(s): T68.XXXA - Hypothermia , initial encounter Is this a current diagnosis for this admission?: Yes Plan: Likely secondary to environmental etiology as patient was picked up from outside. Resolved C (7) Tachycardia Is this a current diagnosis for this admission?: Yes Plan: Resolved (8) UTI (urinary tract infection) Qualifiers: Urinary tract infection type: acute cystitis Hematuria presence: without hematuria Qualified Code(s): N30.00 - Acute cystitis without hematuria Is this a current diagnosis for this admission?: Yes Plan: On empiric ceftriaxone. Adjust as needed - Time Time Spent with patient: 15-24 minutes Medications reviewed and adjusted accordingly: Yes Anticipated discharge: Home - Inpatient Certification Medical Necessity: Need Close Monitoring Due to Risk of Patient Decompensation, Need For IV Fluids, Need for IV Antibiotics, Risk of Complication if Not Cared For in Hospital
[2017-11-18] MEDS: OXYCODONE-ACETAMINOPHEN 5-325 MG TABLET PO PRN (20:01)
[2017-11-18] MEDS: BACITRACIN ZINC OINTMENT 15 GM TP SCH (22:45)
[2017-11-19] MEDS: OXYCODONE-ACETAMINOPHEN 5-325 MG TABLET PO PRN ×3 (03:23→22:06)
[2017-11-19] MEDS: BACITRACIN ZINC OINTMENT 15 GM TP SCH ×3 (06:15→22:06)
[2017-11-19] MEDS: OLANZAPINE 5 MG TAB.RAPDIS PO SCH ×3 (06:15→22:06)
[2017-11-19 06:24] LABS: ABSOLUTE EOSINOPHILS # (AUTO) 0.2 10^3/uL (0.0-0.6); ABSOLUTE LYMPHOCYTES (AUTO) 0.5 10^3/uL (0.5-4.7); ABSOLUTE MONOCYTES (AUTO) 0.5 10^3/uL (0.1-1.4); ABSOLUTE NEUT (AUTO) 4.1 10^3/uL (1.7-8.2); BASOPHILS % (AUTO) 0.3 % (0-2); HEMOGLOBIN 9.7 g/dL (12.0-15.5); LYMPHOCYTES % (AUTO) 8.7 % (13-45); MEAN CORPUSCULAR HEMOGLOBIN 31.4 pg (27.0-33.4); MEAN CORPUSCULAR HGB CONC 34.8 g/dL (32.0-36.0); MEAN CORPUSCULAR VOLUME 90 fl (80-97); MONOCYTES % (AUTO) 9.4 % (3-13); PLATELET COUNT 216 10^3/uL (150-450); RED CELL DISTRIBUTION WIDTH 15.1 % (11.5-14.0); SEGMENTED NEUTROPHILS % (AUTO) 78.6 % (42-78); TOTAL CELLS COUNTED % (AUTO) 100 %; WHITE BLOOD COUNT 5.2 10^3/uL (4.0-10.5)
[2017-11-19 06:31] LABS: ANION GAP 9 (5-19); BLOOD UREA NITROGEN 3 mg/dL (7-20); CALCIUM 8.6 mg/dL (8.4-10.2); CARBON DIOXIDE 24 mmol/L (22-30); CHLORIDE 106 mmol/L (98-107); CREATINE KINASE 1518 U/L (30-135); GLUCOSE 83 mg/dL (75-110); SODIUM 139.3 mmol/L (137-145)
[2017-11-19] MEDS: BENZTROPINE MESYLATE 1 MG TABLET PO SCH (10:14)
[2017-11-19] MEDS: ENOXAPARIN SODIUM INJ 40 MG/0.4 ML DISP.SYRIN SUBCUT SCH (10:14)
[2017-11-19] MEDS: FAMOTIDINE 20 MG TABLET PO SCH ×2 (10:15→22:06)
[2017-11-19] MEDS: CHLORPROMAZINE HCL 25 MG TABLET PO SCH ×3 (10:15→22:06)
[2017-11-19] MEDS: CEFTRIAXONE 2 GM/D5W RTU 2 GM/50 ML RTUPB IV SCH (10:32)
[2017-11-19] MEDS: DEXTROSE 5%-1/2 NORMAL SALINE 1,000 ML IV PRN (10:38)
[2017-11-19] MEDS: DOCUSATE SODIUM 100 MG CAPSULE PO SCH (10:38)
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
[2017-11-19] MEDS: ACETAMINOPHEN 325 MG TABLET PO PRN ×2 (14:36→23:59)
--- NOTE | 2017-11-19 17:10 | PDOC PROGRESS REPORT ---
Subjective Progress Note for:: 11/19/17 Subjective:: No new issues. Patient stated that she had to go to the bathroom. Nursing states that patient has been tangential in her thinking process. Reason For Visit: ENCEPHALOPATHY,PSYCHOSIS,LEUKOCYTOSIS,HYPOTHERMIA Physical Exam Vital Signs: Temp Pulse Resp BP Pulse Ox 98.2 F 99 17 127/69 H 99 11/19/17 11:16 11/19/17 11:16 11/19/17 11:16 11/19/17 11:16 11/19/17 11:16 Intake & Output 11/18/17 11/19/17 11/20/17 06:59 06:59 06:59 Intake Total 3922 Output Total 3100 Balance -3100 3922 General appearance: PRESENT: no acute distress, well-developed, well-nourished Head exam: PRESENT: atraumatic, normocephalic Eye exam: PRESENT: conjunctiva pink, EOMI. ABSENT: scleral icterus Ear exam: PRESENT: normal external ear exam Mouth exam: PRESENT: moist, tongue midline Neck exam: ABSENT: carotid bruit, JVD, lymphadenopathy, thyromegaly Respiratory exam: PRESENT: clear to auscultation keisha. ABSENT: rales, rhonchi, wheezes Cardiovascular exam: PRESENT: RRR. ABSENT: diastolic murmur, rubs, systolic murmur Pulses: PRESENT: normal dorsalis pedis pul Vascular exam: PRESENT: normal capillary refill GI/Abdominal exam: PRESENT: normal bowel sounds, soft. ABSENT: distended, guarding, mass, organolmegaly, rebound, tenderness Rectal exam: PRESENT: deferred Extremities exam: PRESENT: full ROM. ABSENT: calf tenderness, clubbing, pedal edema Musculoskeletal exam: PRESENT: full ROM Neurological exam: PRESENT: alert, awake, oriented to person, oriented to place , oriented to time, oriented to situation, CN II-XII grossly intact. ABSENT: motor sensory deficit Psychiatric exam: PRESENT: appropriate affect, normal mood. ABSENT: homicidal ideation, suicidal ideation Skin exam: PRESENT: dry, intact, warm. ABSENT: cyanosis, rash Results Laboratory Results: 11/19/17 05:07 11/19/17 05:07 11/19/17 11/19/17 05:07 05:07 WBC 5.2 RBC 3.10 L Hgb 9.7 L Hct 28.0 L MCV 90 MCH 31.4 MCHC 34.8 RDW 15.1 H Plt Count 216 Seg Neutrophils % 78.6 H Lymphocytes % 8.7 L Monocytes % 9.4 Eosinophils % 3.0 Basophils % 0.3 Absolute Neutrophils 4.1 Absolute Lymphocytes 0.5 Absolute Monocytes 0.5 Absolute Eosinophils 0.2 Absolute Basophils 0.0 Sodium 139.3 Potassium 3.0 L* Chloride 106 Carbon Dioxide 24 Anion Gap 9 BUN 3 L Creatinine 0.64 Est GFR ( Amer) > 60 Est GFR (Non-Af Amer) > 60 Glucose 83 Calcium 8.6 11/17/17 11/18/17 11/19/17 06:41 04:34 05:07 Creatine Kinase 4538 H 4463 H 1518 H Impressions: Abdomen/Pelvis CT 11/16/17 08:35 IMPRESSION: No acute findings in the abdomen or pelvis. Cervical Spine CT 11/16/17 08:35 IMPRESSION: CHRONIC DEGENERATIVE CHANGES. NO ACUTE FINDINGS. Chest CT 11/16/17 08:35 IMPRESSION: No acute findings in the chest. Head CT 11/16/17 08:35 IMPRESSION: NORMAL BRAIN CT WITHOUT CONTRAST. EVIDENCE OF ACUTE STROKE: NO. Assessment & Plan - Diagnosis (1) Systemic inflammatory response syndrome (SIRS) Is this a current diagnosis for this admission?: Yes Plan: Suspect urinary tract infection: No urine culture was obtained. Patient has been on antibiotics therefore will complete treatment for total of 5 days. (2) Acute metabolic encephalopathy Is this a current diagnosis for this admission?: Yes Plan: Most likely secondary to manic phase: Psych evaluating patient. (3) Acute renal failure Qualifiers: Acute renal failure type: unspecified Qualified Code(s): N17.9 - Acute kidney failure, unspecified Is this a current diagnosis for this admission?: Yes Plan: Secondary to dehydration: Resolved with IV fluid administration. 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 Will discontinue IV fluids. Nursing states that patient is drinking plenty of fluid. (7) Tachycardia Is this a current diagnosis for this admission?: Yes Plan: resolving. (8) UTI (urinary tract infection) Qualifiers: Urinary tract infection type: acute cystitis Hematuria presence: without hematuria Qualified Code(s): N30.00 - Acute cystitis without hematuria Is this a current diagnosis for this admission?: Yes Plan: Urine culture was obtained at time of admission and patient has been on Rocephin. We will continue treatment for total of 5 days. - Time Time Spent with patient: 15-24 minutes
[2017-11-19] MEDS: POTASSI CL 20 MEQ/50 ML RIDER 20 MEQ/50 ML RTUPB IV SCH ×2 (18:31→22:06)
[2017-11-19] MEDS: ZOLPIDEM TARTRATE 5 MG TABLET PO PRN (23:59)
[2017-11-20] MEDS: POTASSI CL 20 MEQ/50 ML RIDER 20 MEQ/50 ML RTUPB IV SCH (00:28)
[2017-11-20] MEDS: OLANZAPINE 5 MG TAB.RAPDIS PO SCH ×3 (05:15→21:22)
[2017-11-20] MEDS: BACITRACIN ZINC OINTMENT 15 GM TP SCH ×3 (05:15→21:22)
[2017-11-20] MEDS: OXYCODONE-ACETAMINOPHEN 5-325 MG TABLET PO PRN ×3 (05:15→20:10)
[2017-11-20 07:12] LABS: ABSOLUTE EOSINOPHILS # (AUTO) 0.1 10^3/uL (0.0-0.6); ABSOLUTE LYMPHOCYTES (AUTO) 0.5 10^3/uL (0.5-4.7); ABSOLUTE MONOCYTES (AUTO) 0.5 10^3/uL (0.1-1.4); ABSOLUTE NEUT (AUTO) 2.4 10^3/uL (1.7-8.2); BASOPHILS % (AUTO) 0.5 % (0-2); EOSINOPHILS % (AUTO) 3.1 % (0-6); HEMATOCRIT 29.8 % (36.0-47.0); HEMOGLOBIN 10.3 g/dL (12.0-15.5); LYMPHOCYTES % (AUTO) 13.4 % (13-45); MEAN CORPUSCULAR HEMOGLOBIN 31.2 pg (27.0-33.4); MEAN CORPUSCULAR HGB CONC 34.7 g/dL (32.0-36.0); MEAN CORPUSCULAR VOLUME 90 fl (80-97); MONOCYTES % (AUTO) 13.8 % (3-13); PLATELET COUNT 234 10^3/uL (150-450); SEGMENTED NEUTROPHILS % (AUTO) 69.2 % (42-78); TOTAL CELLS COUNTED % (AUTO) 100 %; WHITE BLOOD COUNT 3.5 10^3/uL (4.0-10.5)
[2017-11-20 07:35] LABS: ALANINE AMINOTRANSFERASE 63 U/L (9-52); ALBUMIN 3.3 g/dL (3.5-5.0); ALKALINE PHOSPHATASE 77 U/L (38-126); ANION GAP 7 (5-19); ASPARTATE AMINO TRANSFERASE 56 U/L (14-36); BILIRUBIN,DIRECT 0.3 mg/dL (0.0-0.4); BILIRUBIN,TOTAL 0.6 mg/dL (0.2-1.3); BLOOD UREA NITROGEN 5 mg/dL (7-20); CALCIUM 8.7 mg/dL (8.4-10.2); CARBON DIOXIDE 24 mmol/L (22-30); CHLORIDE 111 mmol/L (98-107); GLUCOSE 87 mg/dL (75-110); POTASSIUM 3.1 mmol/L (3.6-5.0); SODIUM 142.4 mmol/L (137-145); TOTAL PROTEIN 5.6 g/dL (6.3-8.2)
[2017-11-20] MEDS: BENZTROPINE MESYLATE 1 MG TABLET PO SCH (10:50)
[2017-11-20] MEDS: DOCUSATE SODIUM 100 MG CAPSULE PO SCH (10:50)
[2017-11-20] MEDS: FAMOTIDINE 20 MG TABLET PO SCH ×2 (10:50→21:22)
[2017-11-20] MEDS: ENOXAPARIN SODIUM INJ 40 MG/0.4 ML DISP.SYRIN SUBCUT SCH (10:51)
[2017-11-20] MEDS: CEFTRIAXONE 2 GM/D5W RTU 2 GM/50 ML RTUPB IV SCH (10:53)
--- NOTE | 2017-11-20 14:11 | PSYCHOLOGICAL NOTE ---
Psych Note - Psych Note Psych Note: Re-eval reason: Follow up with patient Contact Permissions: None Patient is a 42-year-old female. Patient reports she is feeling better and able to think more clearly. Patient reports she realized that she told me she owned a house by the leg but now knows that that was not her home. Patient reports that [place] the [place] and was hanging out there because no one was home. Patient reports that she likes to drink and was drinking there getting drunk with a maximiliano. Patient reports she still does not remember what happened to her eye or arms and how she got hurt but thinks it was related to walking [place] the [place]. Patient reports that she remembers that she has a home that she rents in [facility]. Patient reports that she has tried to contact her daughter and her daughter is still not answering. Patient reports that she knows she needs help to address her drinking. Patient reports that she feels ready to leave the hospital. Patient reports that she is not sure why she is still there but believes it has something to do with her health. She reports that she has gone to AA to treat her drinking, but found it boring. Patient reports that she would try to go to AA again. Patient reports that she has not talked to her boyfriend since August. Patient reports that she still feels like they talk to each other spiritually through their heart. Patient reports she drinks daily but is not sure exactly how much alcohol. Medication recommendations made by psychiatric provider Dr. Oliver MD includes: none Diagnosis: 303.90 ( F10.20) Alcohol Use Disorder severe Impression/plan; patient is psychiatrically cleared for discharge. Recommendation for patient to seek substance abuse intensive outpatient therapy. Clinician observed patient's behaviors are congruent with alcohol related disorder, initially during her first assessment patient's symptoms were congruent with alcohol intoxication, the following days her symptoms were congruent with alcohol withdrawal. Clinician observed at today's assessment patient's alcohol withdrawal symptoms were resolved. Consulted with Dr. Smith regarding the management and care of patient.
--- NOTE | 2017-11-20 14:23 | PDOC PROGRESS REPORT ---
Subjective Progress Note for:: 11/20/17 Subjective:: Patient states that she has to urinate and defecate. Explained to patient that every time I come to see her she tells me the same thing patient asked me if I want to come to the bathroom with her to examine her. Reason For Visit: ENCEPHALOPATHY,PSYCHOSIS,LEUKOCYTOSIS,HYPOTHERMIA Physical Exam Vital Signs: Temp Pulse Resp BP Pulse Ox 97.6 F 81 18 138/85 H 97 11/20/17 07:36 11/20/17 07:36 11/20/17 07:36 11/20/17 07:36 11/20/17 07:36 Intake & Output 11/19/17 11/20/17 11/21/17 06:59 06:59 06:59 Intake Total 3922 9354 Balance 3922 9354 Weight 82.2 kg General appearance: PRESENT: no acute distress, well-developed, well-nourished Head exam: PRESENT: atraumatic, normocephalic Eye exam: PRESENT: conjunctiva pink, EOMI. ABSENT: scleral icterus Ear exam: PRESENT: normal external ear exam Mouth exam: PRESENT: moist, tongue midline Neck exam: ABSENT: carotid bruit, JVD, lymphadenopathy, thyromegaly Respiratory exam: PRESENT: clear to auscultation keisha. ABSENT: rales, rhonchi, wheezes Cardiovascular exam: PRESENT: RRR. ABSENT: diastolic murmur, rubs, systolic murmur Pulses: PRESENT: normal dorsalis pedis pul Vascular exam: PRESENT: normal capillary refill GI/Abdominal exam: PRESENT: normal bowel sounds, soft. ABSENT: distended, guarding, mass, organolmegaly, rebound, tenderness Rectal exam: PRESENT: deferred Extremities exam: PRESENT: full ROM. ABSENT: calf tenderness, clubbing, pedal edema Musculoskeletal exam: PRESENT: full ROM Neurological exam: PRESENT: alert, awake, oriented to person, oriented to place Psychiatric exam: PRESENT: anxious, manic Skin exam: PRESENT: abrasion - All 4 extremities Results Laboratory Results: 11/20/17 06:58 11/20/17 06:58 11/20/17 11/20/17 06:58 06:58 WBC 3.5 L RBC 3.30 L Hgb 10.3 L Hct 29.8 L MCV 90 MCH 31.2 MCHC 34.7 RDW 15.0 H Plt Count 234 Seg Neutrophils % 69.2 Lymphocytes % 13.4 Monocytes % 13.8 H Eosinophils % 3.1 Basophils % 0.5 Absolute Neutrophils 2.4 Absolute Lymphocytes 0.5 Absolute Monocytes 0.5 Absolute Eosinophils 0.1 Absolute Basophils 0.0 Sodium 142.4 Potassium 3.1 L Chloride 111 H Carbon Dioxide 24 Anion Gap 7 BUN 5 L Creatinine 0.75 Est GFR ( Amer) > 60 Est GFR (Non-Af Amer) > 60 Glucose 87 Calcium 8.7 Magnesium 1.9 Total Bilirubin 0.6 AST 56 H ALT 63 H Alkaline Phosphatase 77 Total Protein 5.6 L Albumin 3.3 L 11/17/17 11/18/17 11/19/17 06:41 04:34 05:07 Creatine Kinase 4538 H 4463 H 1518 H Impressions: Abdomen/Pelvis CT 11/16/17 08:35 IMPRESSION: No acute findings in the abdomen or pelvis. Cervical Spine CT 11/16/17 08:35 IMPRESSION: CHRONIC DEGENERATIVE CHANGES. NO ACUTE FINDINGS. Chest CT 11/16/17 08:35 IMPRESSION: No acute findings in the chest. Head CT 11/16/17 08:35 IMPRESSION: NORMAL BRAIN CT WITHOUT CONTRAST. EVIDENCE OF ACUTE STROKE: NO. Assessment & Plan - Diagnosis (1) Systemic inflammatory response syndrome (SIRS) Is this a current diagnosis for this admission?: Yes Plan: Suspect urinary tract infection: No urine culture was obtained. Patient has been on antibiotics therefore will complete treatment for total of 5 days. (2) Acute metabolic encephalopathy Is this a current diagnosis for this admission?: Yes Plan: Most likely secondary to manic phase: Psych evaluating patient. (3) Acute renal failure Qualifiers: Acute renal failure type: unspecified Qualified Code(s): N17.9 - Acute kidney failure, unspecified Is this a current diagnosis for this admission?: Yes Plan: Secondary to dehydration: Resolved with IV fluid administration. 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 (7) Tachycardia Is this a current diagnosis for this admission?: Yes Plan: Resolved (8) Fever Is this a current diagnosis for this admission?: Yes Plan: Will check CXR. (9) UTI (urinary tract infection) Qualifiers: Urinary tract infection type: acute cystitis Hematuria presence: without hematuria Qualified Code(s): N30.00 - Acute cystitis without hematuria Is this a current diagnosis for this admission?: Yes Plan: Urine culture was obtained at time of admission and patient has been on Rocephin. We will continue treatment for total of 5 days.
--- NOTE | 2017-11-20 15:18 | RADIOLOGY REPORT (SQ) ---
EXAM DESCRIPTION: CHEST SINGLE VIEW COMPLETED DATE/TIME: 11/20/2017 3:10 pm REASON FOR STUDY: Pneumonia COMPARISON: None. EXAM PARAMETERS: NUMBER OF VIEWS: One view. TECHNIQUE: Single frontal radiographic view of the chest acquired. RADIATION DOSE: NA LIMITATIONS: None. FINDINGS: LUNGS AND PLEURA: No opacities, masses or pneumothorax. No pleural effusion. MEDIASTINUM AND HILAR STRUCTURES: No masses. Contour normal. HEART AND VASCULAR STRUCTURES: Heart normal in size. Normal vasculature. BONES: No acute findings. Old rib fracture on the right. HARDWARE: None in the chest. OTHER: No other significant finding. IMPRESSION: NO ACUTE RADIOGRAPHIC FINDING IN THE CHEST. TECHNICAL DOCUMENTATION: JOB ID: [id number] [employer]- All Rights Reserved Reading location - IP/workstation name: [email or web address]
[2017-11-20] MEDS: CHLORPROMAZINE HCL 25 MG TABLET PO SCH (17:36)
[2017-11-20] MEDS: LORAZEPAM 0.5 MG TABLET PO PRN (20:11)
[2017-11-21] MEDS: CHLORPROMAZINE HCL 50 MG TABLET PO PRN (00:17)
[2017-11-21] MEDS: ZOLPIDEM TARTRATE 5 MG TABLET PO PRN (00:17)
[2017-11-21] MEDS: LORAZEPAM 0.5 MG TABLET PO PRN ×4 (00:57→22:07)
[2017-11-21 05:23] LABS: ABSOLUTE EOSINOPHILS # (AUTO) 0.2 10^3/uL (0.0-0.6); ABSOLUTE LYMPHOCYTES (AUTO) 0.6 10^3/uL (0.5-4.7); ABSOLUTE MONOCYTES (AUTO) 0.5 10^3/uL (0.1-1.4); ABSOLUTE NEUT (AUTO) 3.1 10^3/uL (1.7-8.2); BASOPHILS % (AUTO) 0.4 % (0-2); EOSINOPHILS % (AUTO) 4.9 % (0-6); HEMATOCRIT 28.3 % (36.0-47.0); HEMOGLOBIN 9.7 g/dL (12.0-15.5); LYMPHOCYTES % (AUTO) 14.7 % (13-45); MEAN CORPUSCULAR HEMOGLOBIN 31.1 pg (27.0-33.4); MEAN CORPUSCULAR HGB CONC 34.1 g/dL (32.0-36.0); MEAN CORPUSCULAR VOLUME 91 fl (80-97); PLATELET COUNT 225 10^3/uL (150-450); RED CELL DISTRIBUTION WIDTH 15.2 % (11.5-14.0); TOTAL CELLS COUNTED % (AUTO) 100 %; WHITE BLOOD COUNT 4.4 10^3/uL (4.0-10.5)
[2017-11-21] MEDS: OLANZAPINE 5 MG TAB.RAPDIS PO SCH ×3 (05:28→22:06)
[2017-11-21] MEDS: OXYCODONE-ACETAMINOPHEN 5-325 MG TABLET PO PRN ×2 (05:28→22:05)
[2017-11-21] MEDS: BACITRACIN ZINC OINTMENT 15 GM TP SCH ×2 (05:28→13:44)
[2017-11-21 05:43] LABS: ALANINE AMINOTRANSFERASE 73 U/L (9-52); ALBUMIN 3.3 g/dL (3.5-5.0); ALKALINE PHOSPHATASE 71 U/L (38-126); ANION GAP 10 (5-19); ASPARTATE AMINO TRANSFERASE 67 U/L (14-36); BILIRUBIN,DIRECT 0.1 mg/dL (0.0-0.4); BILIRUBIN,TOTAL 0.4 mg/dL (0.2-1.3); BLOOD UREA NITROGEN 5 mg/dL (7-20); CALCIUM 8.9 mg/dL (8.4-10.2); CARBON DIOXIDE 24 mmol/L (22-30); CHLORIDE 106 mmol/L (98-107); GLUCOSE 83 mg/dL (75-110); POTASSIUM 3.3 mmol/L (3.6-5.0); SODIUM 139.7 mmol/L (137-145); TOTAL PROTEIN 5.4 g/dL (6.3-8.2)
[2017-11-21] MEDS ORDERED: POTASSIUM CHLORIDE 10 MEQ TABLET.SA PO ONE (10:00)
[2017-11-21] MEDS: FAMOTIDINE 20 MG TABLET PO SCH ×2 (10:28→22:06)
[2017-11-21] MEDS: CEPHALEXIN 500 MG CAPSULE PO SCH ×2 (10:28→17:49)
[2017-11-21] MEDS: BENZTROPINE MESYLATE 1 MG TABLET PO SCH (10:28)
[2017-11-21] MEDS: CHLORPROMAZINE HCL 25 MG TABLET PO SCH ×2 (10:33→17:49)
[2017-11-21] MEDS: ENOXAPARIN SODIUM INJ 40 MG/0.4 ML DISP.SYRIN SUBCUT SCH (10:36)
[2017-11-21] MEDS: DOCUSATE SODIUM 100 MG CAPSULE PO SCH (10:37)
--- NOTE | 2017-11-21 16:21 | PDOC PROGRESS REPORT ---
Subjective Progress Note for:: 11/21/17 Subjective:: No new issues. Reason For Visit: ENCEPHALOPATHY,PSYCHOSIS,LEUKOCYTOSIS,HYPOTHERMIA Physical Exam Vital Signs: Temp Pulse Resp BP Pulse Ox 98.4 F 107 H 16 160/95 H 99 11/21/17 15:18 11/21/17 15:18 11/21/17 15:18 11/21/17 15:18 11/21/17 15:18 Intake & Output 11/20/17 11/21/17 11/22/17 06:59 06:59 06:59 Intake Total 9354 1174 750 Balance 9354 1174 750 Weight 82.2 kg 79.5 kg General appearance: PRESENT: no acute distress, well-developed, well-nourished Head exam: PRESENT: atraumatic, normocephalic Eye exam: PRESENT: conjunctiva pink, EOMI. ABSENT: scleral icterus Ear exam: PRESENT: normal external ear exam Mouth exam: PRESENT: moist, tongue midline Neck exam: ABSENT: carotid bruit, JVD, lymphadenopathy, thyromegaly Respiratory exam: PRESENT: clear to auscultation keisha. ABSENT: rales, rhonchi, wheezes Cardiovascular exam: PRESENT: RRR. ABSENT: diastolic murmur, rubs, systolic murmur Pulses: PRESENT: normal dorsalis pedis pul Vascular exam: PRESENT: normal capillary refill GI/Abdominal exam: PRESENT: normal bowel sounds, soft. ABSENT: distended, guarding, mass, organolmegaly, rebound, tenderness Rectal exam: PRESENT: deferred Extremities exam: PRESENT: full ROM. ABSENT: calf tenderness, clubbing, pedal edema Musculoskeletal exam: PRESENT: full ROM Neurological exam: PRESENT: alert, awake, oriented to person, oriented to place , oriented to time, oriented to situation, CN II-XII grossly intact. ABSENT: motor sensory deficit Psychiatric exam: PRESENT: appropriate affect, normal mood. ABSENT: homicidal ideation, suicidal ideation Skin exam: PRESENT: dry, intact, warm. ABSENT: cyanosis, rash Results Laboratory Results: 11/21/17 04:06 11/21/17 04:06 11/21/17 11/21/17 04:06 04:06 WBC 4.4 RBC 3.10 L Hgb 9.7 L Hct 28.3 L MCV 91 MCH 31.1 MCHC 34.1 RDW 15.2 H Plt Count 225 Seg Neutrophils % 69.0 Lymphocytes % 14.7 Monocytes % 11.0 Eosinophils % 4.9 Basophils % 0.4 Absolute Neutrophils 3.1 Absolute Lymphocytes 0.6 Absolute Monocytes 0.5 Absolute Eosinophils 0.2 Absolute Basophils 0.0 Sodium 139.7 Potassium 3.3 L Chloride 106 Carbon Dioxide 24 Anion Gap 10 BUN 5 L Creatinine 0.68 Est GFR ( Amer) > 60 Est GFR (Non-Af Amer) > 60 Glucose 83 Calcium 8.9 Magnesium 1.9 Total Bilirubin 0.4 AST 67 H ALT 73 H Alkaline Phosphatase 71 Total Protein 5.4 L Albumin 3.3 L 11/19/17 18:12 Clean Catch Midstream Urine Culture - Final NO GROWTH 2 DAYS 11/17/17 11/18/17 11/19/17 06:41 04:34 05:07 Creatine Kinase 4538 H 4463 H 1518 H Impressions: Abdomen/Pelvis CT 11/16/17 08:35 IMPRESSION: No acute findings in the abdomen or pelvis. Cervical Spine CT 11/16/17 08:35 IMPRESSION: CHRONIC DEGENERATIVE CHANGES. NO ACUTE FINDINGS. Chest CT 11/16/17 08:35 IMPRESSION: No acute findings in the chest. Head CT 11/16/17 08:35 IMPRESSION: NORMAL BRAIN CT WITHOUT CONTRAST. EVIDENCE OF ACUTE STROKE: NO. Chest X-Ray 11/20/17 00:00 IMPRESSION: NO ACUTE RADIOGRAPHIC FINDING IN THE CHEST. Assessment & Plan - Diagnosis (1) Systemic inflammatory response syndrome (SIRS) Is this a current diagnosis for this admission?: Yes Plan: Suspect urinary tract infection: No urine culture was obtained. Patient has been on antibiotics therefore will complete treatment for total of 5 days. (2) Acute metabolic encephalopathy Is this a current diagnosis for this admission?: Yes Plan: Most likely secondary to manic phase: Psych evaluating patient. (3) Acute renal failure Qualifiers: Acute renal failure type: unspecified Qualified Code(s): N17.9 - Acute kidney failure, unspecified Is this a current diagnosis for this admission?: Yes Plan: Secondary to dehydration: Resolved with IV fluid administration. 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 (7) Tachycardia Is this a current diagnosis for this admission?: Yes Plan: Resolved (8) Fever Is this a current diagnosis for this admission?: Yes Plan: Will check CXR. (9) UTI (urinary tract infection) Qualifiers: Urinary tract infection type: acute cystitis Hematuria presence: without hematuria Qualified Code(s): N30.00 - Acute cystitis without hematuria Is this a current diagnosis for this admission?: Yes Plan: Urine culture was obtained at time of admission and pt now on Keflex. We will continue treatment for total of 5 days. - Time Time Spent with patient: Less than 15 minutes
--- NOTE | 2017-11-21 17:18 | RADIOLOGY REPORT (SQ) ---
EXAM DESCRIPTION: CHEST SINGLE VIEW COMPLETED DATE/TIME: 11/21/2017 5:09 pm REASON FOR STUDY: Fever COMPARISON: 11/20/2017 EXAM PARAMETERS: NUMBER OF VIEWS: One view. TECHNIQUE: Single frontal radiographic view of the chest acquired. RADIATION DOSE: NA LIMITATIONS: None. FINDINGS: LUNGS AND PLEURA: No opacities, masses or pneumothorax. No pleural effusion. MEDIASTINUM AND HILAR STRUCTURES: No masses. Contour normal. HEART AND VASCULAR STRUCTURES: Heart normal in size. Normal vasculature. BONES: An old rib fracture is suggested on the right. HARDWARE: None in the chest. OTHER: No other significant finding. IMPRESSION: NO ACUTE RADIOGRAPHIC FINDING IN THE CHEST. TECHNICAL DOCUMENTATION: JOB ID: [id number] [employer]- All Rights Reserved Reading location - IP/workstation name: [email or web address]
[2017-11-22] MEDS: BACITRACIN ZINC OINTMENT 15 GM TP SCH ×4 (00:28→22:50)
[2017-11-22 05:40] LABS: ABSOLUTE EOSINOPHILS # (AUTO) 0.2 10^3/uL (0.0-0.6); ABSOLUTE LYMPHOCYTES (AUTO) 0.9 10^3/uL (0.5-4.7); ABSOLUTE MONOCYTES (AUTO) 0.5 10^3/uL (0.1-1.4); ABSOLUTE NEUT (AUTO) 1.3 10^3/uL (1.7-8.2); EOSINOPHILS % (AUTO) 7.7 % (0-6); HEMOGLOBIN 9.7 g/dL (12.0-15.5); LYMPHOCYTES % (AUTO) 30.6 % (13-45); MEAN CORPUSCULAR HEMOGLOBIN 30.6 pg (27.0-33.4); MEAN CORPUSCULAR HGB CONC 33.6 g/dL (32.0-36.0); MEAN CORPUSCULAR VOLUME 91 fl (80-97); MONOCYTES % (AUTO) 15.3 % (3-13); PLATELET COUNT 235 10^3/uL (150-450); RED BLOOD COUNT 3.18 10^6/uL (3.72-5.28); RED CELL DISTRIBUTION WIDTH 14.8 % (11.5-14.0); SEGMENTED NEUTROPHILS % (AUTO) 45.4 % (42-78); TOTAL CELLS COUNTED % (AUTO) 100 %
[2017-11-22 06:01] LABS: ALANINE AMINOTRANSFERASE 71 U/L (9-52); ALBUMIN 3.5 g/dL (3.5-5.0); ALKALINE PHOSPHATASE 66 U/L (38-126); ANION GAP 10 (5-19); ASPARTATE AMINO TRANSFERASE 53 U/L (14-36); BILIRUBIN,DIRECT 0.5 mg/dL (0.0-0.4); BILIRUBIN,TOTAL 0.6 mg/dL (0.2-1.3); BLOOD UREA NITROGEN 4 mg/dL (7-20); CALCIUM 9.3 mg/dL (8.4-10.2); CARBON DIOXIDE 24 mmol/L (22-30); CHLORIDE 108 mmol/L (98-107); GLUCOSE 84 mg/dL (75-110); POTASSIUM 3.9 mmol/L (3.6-5.0); SODIUM 141.9 mmol/L (137-145)
[2017-11-22] MEDS: OLANZAPINE 5 MG TAB.RAPDIS PO SCH ×3 (06:06→22:50)
[2017-11-22] MEDS: FAMOTIDINE 20 MG TABLET PO SCH ×2 (09:59→22:50)
[2017-11-22] MEDS: BENZTROPINE MESYLATE 1 MG TABLET PO SCH (09:59)
[2017-11-22] MEDS: ENOXAPARIN SODIUM INJ 40 MG/0.4 ML DISP.SYRIN SUBCUT SCH (09:59)
[2017-11-22] MEDS: DOCUSATE SODIUM 100 MG CAPSULE PO SCH (10:00)
[2017-11-22] MEDS: CEPHALEXIN 500 MG CAPSULE PO SCH ×2 (10:00→17:22)
[2017-11-22] MEDS: CHLORPROMAZINE HCL 25 MG TABLET PO SCH ×2 (10:00→17:22)
[2017-11-22] MEDS: LORAZEPAM 0.5 MG TABLET PO PRN ×2 (12:13→22:50)
--- NOTE | 2017-11-22 13:22 | PDOC PROGRESS REPORT ---
Subjective Progress Note for:: 11/22/17 Subjective:: Patient was seated in a chair this morning. Patient told me that her future Star was present in the room however nobody was present in the room and that he is trying to help her figure out how long she is on her home. Nursing later called stating that patient will not allow them to clean her room because she has spiritual babies wrapped in her bed linens. Reason For Visit: ENCEPHALOPATHY,PSYCHOSIS,LEUKOCYTOSIS,HYPOTHERMIA Physical Exam Vital Signs: Temp Pulse Resp BP Pulse Ox 97.5 F 84 17 140/74 H 100 11/22/17 11:18 11/22/17 11:18 11/22/17 11:18 11/22/17 11:18 11/22/17 11:18 Intake & Output 11/21/17 11/22/17 11/23/17 06:59 06:59 06:59 Intake Total 1174 1400 Balance 1174 1400 Weight 79.5 kg 78.8 kg General appearance: PRESENT: no acute distress, well-developed, well-nourished Head exam: PRESENT: atraumatic, normocephalic Eye exam: PRESENT: conjunctiva pink, EOMI. ABSENT: scleral icterus Ear exam: PRESENT: normal external ear exam Mouth exam: PRESENT: moist, tongue midline Neck exam: ABSENT: carotid bruit, JVD, lymphadenopathy, thyromegaly Respiratory exam: PRESENT: clear to auscultation keisha. ABSENT: rales, rhonchi, wheezes Cardiovascular exam: PRESENT: RRR. ABSENT: diastolic murmur, rubs, systolic murmur Pulses: PRESENT: normal dorsalis pedis pul Vascular exam: PRESENT: normal capillary refill GI/Abdominal exam: PRESENT: normal bowel sounds, soft. ABSENT: distended, guarding, mass, organolmegaly, rebound, tenderness Rectal exam: PRESENT: deferred Extremities exam: PRESENT: full ROM. ABSENT: calf tenderness, clubbing, pedal edema Musculoskeletal exam: PRESENT: full ROM Neurological exam: PRESENT: alert, awake, oriented to time, CN II-XII grossly intact. ABSENT: motor sensory deficit Psychiatric exam: PRESENT: appropriate affect, normal mood. ABSENT: homicidal ideation, suicidal ideation Skin exam: PRESENT: other. ABSENT: cyanosis, rash Results Laboratory Results: 11/22/17 04:26 11/22/17 04:26 11/22/17 11/22/17 04:26 04:26 WBC 3.0 L RBC 3.18 L Hgb 9.7 L Hct 29.0 L MCV 91 MCH 30.6 MCHC 33.6 RDW 14.8 H Plt Count 235 Seg Neutrophils % 45.4 Lymphocytes % 30.6 Monocytes % 15.3 H Eosinophils % 7.7 H Basophils % 1.0 Absolute Neutrophils 1.3 L Absolute Lymphocytes 0.9 Absolute Monocytes 0.5 Absolute Eosinophils 0.2 Absolute Basophils 0.0 Sodium 141.9 Potassium 3.9 Chloride 108 H Carbon Dioxide 24 Anion Gap 10 BUN 4 L Creatinine 0.68 Est GFR ( Amer) > 60 Est GFR (Non-Af Amer) > 60 Glucose 84 Calcium 9.3 Magnesium 2.0 Total Bilirubin 0.6 AST 53 H ALT 71 H Alkaline Phosphatase 66 Total Protein 6.0 L Albumin 3.5 11/19/17 18:12 Clean Catch Midstream Urine Culture - Final NO GROWTH 2 DAYS 11/17/17 11/18/17 11/19/17 06:41 04:34 05:07 Creatine Kinase 4538 H 4463 H 1518 H Impressions: Abdomen/Pelvis CT 11/16/17 08:35 IMPRESSION: No acute findings in the abdomen or pelvis. Cervical Spine CT 11/16/17 08:35 IMPRESSION: CHRONIC DEGENERATIVE CHANGES. NO ACUTE FINDINGS. Chest CT 11/16/17 08:35 IMPRESSION: No acute findings in the chest. Head CT 11/16/17 08:35 IMPRESSION: NORMAL BRAIN CT WITHOUT CONTRAST. EVIDENCE OF ACUTE STROKE: NO. Chest X-Ray 11/21/17 00:00 IMPRESSION: NO ACUTE RADIOGRAPHIC FINDING IN THE CHEST. Assessment & Plan - Diagnosis (1) Systemic inflammatory response syndrome (SIRS) Is this a current diagnosis for this admission?: Yes Plan: Suspect urinary tract infection: Resolved. (2) Acute metabolic encephalopathy Is this a current diagnosis for this admission?: Yes Plan: Most likely secondary to manic phase: Psych evaluating patient. Patient's current presentation is not secondary to alcohol withdrawal. Patient consistently states that her boyfriend's name is Star and is from the future and that is who will her. Patient also states that she is on a home for over 30 years and that she has a trust. Patient states that she does not know how she is on the home for 30 years when she is only 42 years out. Patient reports that Star is trying to help her figure out how she obtained this home. Patient reports that Star is from the future and he will be able to figure out how she owns this home. This is not secondary to alcohol withdrawal. (3) Acute renal failure Qualifiers: Acute renal failure type: unspecified Qualified Code(s): N17.9 - Acute kidney failure, unspecified Is this a current diagnosis for this admission?: Yes Plan: Secondary to dehydration: Resolved. 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 (7) Tachycardia Is this a current diagnosis for this admission?: Yes Plan: Resolved (8) Fever Is this a current diagnosis for this admission?: Yes Plan: Resolved. (9) UTI (urinary tract infection) Qualifiers: Urinary tract infection type: acute cystitis Hematuria presence: without hematuria Qualified Code(s): N30.00 - Acute cystitis without hematuria Is this a current diagnosis for this admission?: Yes Plan: completed treatment. (10) Abrasion Is this a current diagnosis for this admission?: Yes Plan: Upper and Lower ext: Keflex. - Time Time Spent with patient: 15-24 minutes
[2017-11-22] MEDS: ZOLPIDEM TARTRATE 5 MG TABLET PO PRN (22:50)
[2017-11-22] MEDS: OXYCODONE-ACETAMINOPHEN 5-325 MG TABLET PO PRN (22:50)
[2017-11-22] MEDS ORDERED: ZIPRASIDONE MESYLATE INJ/PF 20 MG SDV IM ONE (23:00)
[2017-11-22] MEDS: CHLORPROMAZINE HCL 50 MG TABLET PO PRN (23:15)
[2017-11-23] MEDS: LORAZEPAM 0.5 MG TABLET PO PRN ×3 (04:25→15:49)
[2017-11-23] MEDS: OXYCODONE-ACETAMINOPHEN 5-325 MG TABLET PO PRN (04:45)
[2017-11-23] MEDS: BACITRACIN ZINC OINTMENT 15 GM TP SCH ×3 (06:55→22:03)
[2017-11-23] MEDS: OLANZAPINE 5 MG TAB.RAPDIS PO SCH ×2 (06:55→22:03)
[2017-11-23] MEDS: CHLORPROMAZINE HCL 25 MG TABLET PO SCH (10:12)
[2017-11-23] MEDS: BENZTROPINE MESYLATE 1 MG TABLET PO SCH (10:12)
[2017-11-23] MEDS: CEPHALEXIN 500 MG CAPSULE PO SCH (10:12)
[2017-11-23] MEDS: FAMOTIDINE 20 MG TABLET PO SCH ×2 (10:12→22:03)
[2017-11-23] MEDS: ENOXAPARIN SODIUM INJ 40 MG/0.4 ML DISP.SYRIN SUBCUT SCH (10:13)
[2017-11-23] MEDS: DOCUSATE SODIUM 100 MG CAPSULE PO SCH (10:17)
--- NOTE | 2017-11-23 12:25 | PDOC PROGRESS REPORT ---
Subjective Progress Note for:: 11/23/17 Subjective:: Nursing states the patient has been very agitated overnight experiencing auditory and visual hallucinations. Patient still refused to allow staff to clean room stating that she has spiritual babies wrapped in sheets. Psychiatry is been asked to come back to reevaluate patient because patient's behavior is not consistent with alcohol withdrawal. Reason For Visit: ENCEPHALOPATHY,PSYCHOSIS,LEUKOCYTOSIS,HYPOTHERMIA Physical Exam Vital Signs: Temp Pulse Resp BP Pulse Ox 97.8 F 80 16 132/87 H 100 11/23/17 07:36 11/23/17 07:36 11/23/17 07:36 11/23/17 07:36 11/23/17 07:36 Intake & Output 11/22/17 11/23/17 11/24/17 06:59 06:59 07:59 Intake Total 1400 1420 Output Total 900 Balance 1400 520 Weight 78.8 kg General appearance: PRESENT: no acute distress, well-developed, well-nourished, other - Sleeping Head exam: PRESENT: atraumatic, normocephalic Eye exam: PRESENT: other - Sleeping Neck exam: ABSENT: carotid bruit, JVD, lymphadenopathy, thyromegaly Respiratory exam: PRESENT: clear to auscultation keisha. ABSENT: rales, rhonchi, wheezes Cardiovascular exam: PRESENT: RRR. ABSENT: diastolic murmur, rubs, systolic murmur Pulses: PRESENT: normal dorsalis pedis pul Vascular exam: PRESENT: normal capillary refill GI/Abdominal exam: PRESENT: normal bowel sounds, soft. ABSENT: distended, guarding, mass, organolmegaly, rebound, tenderness Rectal exam: PRESENT: deferred Extremities exam: ABSENT: calf tenderness, clubbing, pedal edema Neurological exam: PRESENT: other - Sleeping Skin exam: PRESENT: other - Abrasions on upper extremities and lower extremities Helling Results Laboratory Results: 11/22/17 04:26 11/22/17 04:26 11/17/17 11/18/17 11/19/17 06:41 04:34 05:07 Creatine Kinase 4538 H 4463 H 1518 H Impressions: Abdomen/Pelvis CT 11/16/17 08:35 IMPRESSION: No acute findings in the abdomen or pelvis. Cervical Spine CT 11/16/17 08:35 IMPRESSION: CHRONIC DEGENERATIVE CHANGES. NO ACUTE FINDINGS. Chest CT 11/16/17 08:35 IMPRESSION: No acute findings in the chest. Head CT 11/16/17 08:35 IMPRESSION: NORMAL BRAIN CT WITHOUT CONTRAST. EVIDENCE OF ACUTE STROKE: NO. Chest X-Ray 11/21/17 00:00 IMPRESSION: NO ACUTE RADIOGRAPHIC FINDING IN THE CHEST. Assessment & Plan - Diagnosis (1) Systemic inflammatory response syndrome (SIRS) Is this a current diagnosis for this admission?: Yes Plan: Suspect urinary tract infection: Resolved. (2) Acute metabolic encephalopathy Is this a current diagnosis for this admission?: Yes Plan: Most likely secondary to manic phase: Olanzapine and Chlorpromazine (3) Acute renal failure Qualifiers: Acute renal failure type: unspecified Qualified Code(s): N17.9 - Acute kidney failure, unspecified Is this a current diagnosis for this admission?: Yes Plan: Secondary to dehydration: Resolved. 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 (7) Tachycardia Is this a current diagnosis for this admission?: Yes Plan: Resolved (8) Fever Is this a current diagnosis for this admission?: Yes Plan: Resolved. (9) UTI (urinary tract infection) Qualifiers: Urinary tract infection type: acute cystitis Hematuria presence: without hematuria Qualified Code(s): N30.00 - Acute cystitis without hematuria Is this a current diagnosis for this admission?: Yes Plan: completed treatment. (10) Abrasion Is this a current diagnosis for this admission?: Yes Plan: Upper and Lower ext: Keflex. - Time Time Spent with patient: Less than 15 minutes
[2017-11-23] MEDS ORDERED: ZOLPIDEM TARTRATE 5 MG TABLET PO PRN (18:55)
[2017-11-24] MEDS: LORAZEPAM 0.5 MG TABLET PO PRN ×3 (00:58→13:14)
[2017-11-24] MEDS: BACITRACIN ZINC OINTMENT 15 GM TP SCH ×2 (06:58→13:15)
[2017-11-24] MEDS: OLANZAPINE 5 MG TAB.RAPDIS PO SCH ×2 (06:58→13:14)
[2017-11-24 08:54] LABS: ABSOLUTE EOSINOPHILS # (AUTO) 0.2 10^3/uL (0.0-0.6); ABSOLUTE LYMPHOCYTES (AUTO) 0.8 10^3/uL (0.5-4.7); ABSOLUTE MONOCYTES (AUTO) 0.4 10^3/uL (0.1-1.4); ABSOLUTE NEUT (AUTO) 2.8 10^3/uL (1.7-8.2); BASOPHILS % (AUTO) 0.6 % (0-2); EOSINOPHILS % (AUTO) 4.4 % (0-6); HEMATOCRIT 30.4 % (36.0-47.0); HEMOGLOBIN 10.2 g/dL (12.0-15.5); LYMPHOCYTES % (AUTO) 19.9 % (13-45); MEAN CORPUSCULAR HEMOGLOBIN 30.7 pg (27.0-33.4); MEAN CORPUSCULAR HGB CONC 33.5 g/dL (32.0-36.0); MEAN CORPUSCULAR VOLUME 92 fl (80-97); PLATELET COUNT 270 10^3/uL (150-450); RED BLOOD COUNT 3.32 10^6/uL (3.72-5.28); RED CELL DISTRIBUTION WIDTH 14.7 % (11.5-14.0); SEGMENTED NEUTROPHILS % (AUTO) 66.1 % (42-78); TOTAL CELLS COUNTED % (AUTO) 100 %; WHITE BLOOD COUNT 4.3 10^3/uL (4.0-10.5)
[2017-11-24 09:11] LABS: ALANINE AMINOTRANSFERASE 67 U/L (9-52); ALBUMIN 3.8 g/dL (3.5-5.0); ALKALINE PHOSPHATASE 78 U/L (38-126); ANION GAP 9 (5-19); ASPARTATE AMINO TRANSFERASE 37 U/L (14-36); BILIRUBIN,DIRECT 0.3 mg/dL (0.0-0.4); BILIRUBIN,TOTAL 0.4 mg/dL (0.2-1.3); BLOOD UREA NITROGEN 8 mg/dL (7-20); CALCIUM 9.1 mg/dL (8.4-10.2); CARBON DIOXIDE 26 mmol/L (22-30); CHLORIDE 107 mmol/L (98-107); GLUCOSE 83 mg/dL (75-110); POTASSIUM 3.8 mmol/L (3.6-5.0); SODIUM 141.5 mmol/L (137-145); TOTAL PROTEIN 6.4 g/dL (6.3-8.2)
[2017-11-24] MEDS: DOCUSATE SODIUM 100 MG CAPSULE PO SCH (10:53)
[2017-11-24] MEDS: ENOXAPARIN SODIUM INJ 40 MG/0.4 ML DISP.SYRIN SUBCUT SCH (10:53)
[2017-11-24] MEDS: CHLORPROMAZINE HCL 25 MG TABLET PO SCH (10:53)
[2017-11-24] MEDS: CEPHALEXIN 500 MG CAPSULE PO SCH (10:53)
[2017-11-24] MEDS: BENZTROPINE MESYLATE 1 MG TABLET PO SCH (10:53)
[2017-11-24] MEDS: FAMOTIDINE 20 MG TABLET PO SCH (10:54)
[2017-11-24] MEDS: ACETAMINOPHEN 325 MG TABLET PO PRN (10:58)
--- NOTE | 2017-11-24 12:35 | PDOC PROGRESS REPORT ---
Subjective Progress Note for:: 11/24/17 Subjective:: Patient has been very combative and disruptive during the night. Patient's been screaming out at nursing staff. Patient has been conversing with people that are not physically present in room. Reason For Visit: ENCEPHALOPATHY,PSYCHOSIS,LEUKOCYTOSIS,HYPOTHERMIA Physical Exam Vital Signs: Temp Pulse Resp BP Pulse Ox 97.6 F 70 17 137/84 H 97 11/23/17 23:47 11/23/17 23:47 11/23/17 23:47 11/23/17 23:47 11/23/17 23:47 Intake & Output 11/23/17 11/24/17 11/25/17 05:59 06:59 06:59 Intake Total Output Total Balance Weight Exam: Patient refused examination this morning. Results Laboratory Results: 11/24/17 08:41 11/24/17 08:41 11/24/17 11/24/17 08:41 08:41 WBC 4.3 RBC 3.32 L Hgb 10.2 L Hct 30.4 L MCV 92 MCH 30.7 MCHC 33.5 RDW 14.7 H Plt Count 270 Seg Neutrophils % 66.1 Lymphocytes % 19.9 Monocytes % 9.0 Eosinophils % 4.4 Basophils % 0.6 Absolute Neutrophils 2.8 Absolute Lymphocytes 0.8 Absolute Monocytes 0.4 Absolute Eosinophils 0.2 Absolute Basophils 0.0 Sodium 141.5 Potassium 3.8 Chloride 107 Carbon Dioxide 26 Anion Gap 9 BUN 8 Creatinine 0.72 Est GFR ( Amer) > 60 Est GFR (Non-Af Amer) > 60 Glucose 83 Calcium 9.1 Total Bilirubin 0.4 AST 37 H ALT 67 H Alkaline Phosphatase 78 Total Protein 6.4 Albumin 3.8 11/17/17 11/18/17 11/19/17 06:41 04:34 05:07 Creatine Kinase 4538 H 4463 H 1518 H Impressions: Abdomen/Pelvis CT 11/16/17 08:35 IMPRESSION: No acute findings in the abdomen or pelvis. Cervical Spine CT 11/16/17 08:35 IMPRESSION: CHRONIC DEGENERATIVE CHANGES. NO ACUTE FINDINGS. Chest CT 11/16/17 08:35 IMPRESSION: No acute findings in the chest. Head CT 11/16/17 08:35 IMPRESSION: NORMAL BRAIN CT WITHOUT CONTRAST. EVIDENCE OF ACUTE STROKE: NO. Chest X-Ray 03/08/18 00:00 IMPRESSION: NO ACUTE RADIOGRAPHIC FINDING IN THE CHEST. Assessment & Plan - Diagnosis (1) Systemic inflammatory response syndrome (SIRS) Is this a current diagnosis for this admission?: Yes Plan: Suspect urinary tract infection: Resolved. (2) Acute metabolic encephalopathy Is this a current diagnosis for this admission?: Yes Plan: Most likely secondary to manic phase: Olanzapine and Chlorpromazine. Psychiatry states that they will go back and reexamine patient and write a more detailed note addressing patient's past psychological hospitalizations. Psychiatry yesterday stated that patient's behavior was due to patient being homeless. If this is the case we still have to arrange safe discharge for patient. Due to patient's current behavior arranging safe discharge for patient is difficult. (3) Acute renal failure Qualifiers: Acute renal failure type: unspecified Qualified Code(s): N17.9 - Acute kidney failure, unspecified Is this a current diagnosis for this admission?: Yes Plan: Secondary to dehydration: Resolved. 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 (7) Tachycardia Is this a current diagnosis for this admission?: Yes Plan: Resolved (8) Fever Is this a current diagnosis for this admission?: Yes Plan: Resolved. (9) UTI (urinary tract infection) Qualifiers: Urinary tract infection type: acute cystitis Hematuria presence: without hematuria Qualified Code(s): N30.00 - Acute cystitis without hematuria Is this a current diagnosis for this admission?: Yes Plan: completed treatment. (10) Abrasion Is this a current diagnosis for this admission?: Yes Plan: Upper and Lower ext: Keflex. - Time Time Spent with patient: 15-24 minutes
[2017-11-24 12:36] VITALS: BP 139/91
--- NOTE | 2017-11-24 17:58 | PDOC DISCHARGE SUMMARY ---
General - Admit/Disc Date/PCP Admission Date/Primary Care Provider: 11/16/17 12:39 Discharge Date: 11/24/17 - Discharge Diagnosis (1) Systemic inflammatory response syndrome (SIRS) Is this a current diagnosis for this admission?: Yes Summary: Resolved. (2) Acute metabolic encephalopathy Is this a current diagnosis for this admission?: Yes Summary: Resolved. (3) Acute renal failure Is this a current diagnosis for this admission?: Yes Summary: Resolved. (4) Hypothermia Is this a current diagnosis for this admission?: Yes Summary: Resolved. (5) Manic depressive psychosis Is this a current diagnosis for this admission?: Yes Summary: Pt seen by Psych and stated that pt was ok to leave. (6) Rhabdomyolysis Is this a current diagnosis for this admission?: Yes Summary: resolved (7) Tachycardia Is this a current diagnosis for this admission?: Yes Summary: Resolved. (8) Fever Is this a current diagnosis for this admission?: Yes Summary: Resolved. (9) UTI (urinary tract infection) Is this a current diagnosis for this admission?: Yes Summary: Completed treatment. (10) Abrasion Is this a current diagnosis for this admission?: Yes - Additional Information Resuscitation Status: Full Code Home Medications: Amlodipine Besylate [Norvasc 10 mg Tablet] 10 mg PO DAILY 11/16/17 Aripiprazole [Abilify 10 mg Tablet] 20 mg PO DAILY 11/16/17 Benztropine Mesylate [Benztropine Mesylate 2 mg Tablet] 2 mg PO Q12 11/16/17 Bupropion HCl [Wellbutrin Sr] 100 mg PO DAILY 11/16/17 Bupropion HCl [Wellbutrin Xl 150 mg 24hr Tablet] 150 mg PO DAILY 11/16/17 Hydroxyzine Pamoate [Vistaril 50 mg Capsule] 50 mg PO QHS 11/16/17 Lisinopril [Zestril] 5 mg PO DAILY 11/16/17 Tyronza Carbonate 300 mg PO DAILY 11/16/17 Tyronza Carbonate 600 mg PO QHS 11/16/17 Omeprazole 20 mg PO DAILY 11/16/17 Prazosin HCl 2 mg PO QHS 11/16/17 Risperidone [Risperdal 1 mg Tablet] 1 mg PO Q12 11/16/17 Topiramate [Topamax 25 mg Tablet] 25 mg PO Q12 11/16/17 History of Present Illness Patient complains of: Patient was found outside in the mud History of Present Illness: CHRIS BURRIS is a 42 year old female that is hospital after being found outside in the mud. Patient reported that she was trying to get to her home. Patient was found to have multiple abrasions over her knees and upper extremities. There was initial concern the patient had a urinary tract infection however due to no urine culture being collected patient was treated for total of 5 days for UTI. Patient was seen by psychiatry due to patient's reports seeing people that were not present and hearing voices give her commands. Psych evaluated patient and states the patient has a long history and that the reason why patient is acting the way that she is does not due to Romeo I issue but due to patient being homeless and trying to find somewhere to stay. Patient was IVCed but and psych it cleared patient. Patient left [facility] Course Hospital Course: CHRIS BURRIS is a 42 year old female that [place] hospital [place] [facility] [place] that she was trying to get to her home. Patient was found to have multiple abrasions over her knees and upper extremities. There was initial concern the patient had a urinary tract infection however due to no urine culture being collected patient was treated for total of 5 days for UTI. Patient was seen by psychiatry due to patient's reports seeing people that were not present and hearing voices give her commands. Psych evaluated patient and states the patient has a long history and that the reason why patient is acting the way that she is does not due to Romeo I issue but due to patient being homeless and trying to find somewhere to stay. Patient was IVCed but and psych it cleared patient. Patient left [facility] Physical Exam Vital Signs: Temp Pulse Resp BP Pulse Ox 97.7 F 77 16 139/91 H 97 11/24/17 11:17 11/24/17 11:17 11/24/17 11:17 11/24/17 11:17 11/24/17 11:17 Intake & Output 11/23/17 11/24/17 11/25/17 05:59 06:59 06:59 Intake Total Output Total Balance Weight General appearance: PRESENT: cooperative, well-developed, well-nourished Head exam: PRESENT: atraumatic, normocephalic Eye exam: PRESENT: conjunctiva pink, EOMI. ABSENT: scleral icterus Ear exam: PRESENT: normal external ear exam Mouth exam: PRESENT: moist, tongue midline Neck exam: ABSENT: carotid bruit, JVD, lymphadenopathy, thyromegaly Respiratory exam: PRESENT: clear to auscultation keisha. ABSENT: rales, rhonchi, wheezes Cardiovascular exam: PRESENT: RRR. ABSENT: diastolic murmur, rubs, systolic murmur Pulses: PRESENT: normal dorsalis pedis pul Vascular exam: PRESENT: normal capillary refill GI/Abdominal exam: PRESENT: normal bowel sounds, soft. ABSENT: distended, guarding, mass, organolmegaly, rebound, tenderness Rectal exam: PRESENT: deferred Musculoskeletal exam: PRESENT: full ROM Neurological exam: PRESENT: alert, awake, oriented to person, oriented to place , oriented to time, oriented to situation, CN II-XII grossly intact. ABSENT: motor sensory deficit Psychiatric exam: PRESENT: appropriate affect, normal mood. ABSENT: homicidal ideation, suicidal ideation Skin exam: PRESENT: other - upper and lower ext abrasion Results Laboratory Results: 11/24/17 08:41 11/24/17 08:41 11/24/17 11/24/17 08:41 08:41 WBC 4.3 RBC 3.32 L Hgb 10.2 L Hct 30.4 L MCV 92 MCH 30.7 MCHC 33.5 RDW 14.7 H Plt Count 270 Seg Neutrophils % 66.1 Lymphocytes % 19.9 Monocytes % 9.0 Eosinophils % 4.4 Basophils % 0.6 Absolute Neutrophils 2.8 Absolute Lymphocytes 0.8 Absolute Monocytes 0.4 Absolute Eosinophils 0.2 Absolute Basophils 0.0 Sodium 141.5 Potassium 3.8 Chloride 107 Carbon Dioxide 26 Anion Gap 9 BUN 8 Creatinine 0.72 Est GFR ( Amer) > 60 Est GFR (Non-Af Amer) > 60 Glucose 83 Calcium 9.1 Total Bilirubin 0.4 AST 37 H ALT 67 H Alkaline Phosphatase 78 Total Protein 6.4 Albumin 3.8 11/17/17 11/18/17 11/19/17 06:41 04:34 05:07 Creatine Kinase 4538 H 4463 H 1518 H Impressions: Abdomen/Pelvis CT 11/16/17 08:35 IMPRESSION: No acute findings in the abdomen or pelvis. Cervical Spine CT 11/16/17 08:35 IMPRESSION: CHRONIC DEGENERATIVE CHANGES. NO ACUTE FINDINGS. Chest CT 11/16/17 08:35 IMPRESSION: No acute findings in the chest. Head CT 11/16/17 08:35 IMPRESSION: NORMAL BRAIN CT WITHOUT CONTRAST. EVIDENCE OF ACUTE STROKE: NO. Chest X-Ray 11/21/17 00:00 IMPRESSION: NO ACUTE RADIOGRAPHIC FINDING IN THE CHEST. Qualifiers - * PATEINT BEING DISCHARGED WITH ANY OF THE FOLLOWING DIAGNOSIS?: No Plan Time Spent: Greater than 30 Minutes
== END 2017-11-24 15:45 | disposition left against medical advice (07) | DRG 885 ==
LOC: ER 08:31 → UNDOADMIN 12:39 → EH 12:39 → 4N 11-18 00:15 → EH 11-18 00:15
PROVIDERS: ADMIT Internal Medicine; ATTEND Internal Medicine
PROC: 3E0234Z Introduction of Serum, Toxoid and Vaccine into Muscle, Percutaneous Approach (ICD-10-PCS; principal; 2017-11-16)
DX: F31.2 Bipolar disorder, current episode manic severe with psychotic features (principal); G93.41 Metabolic encephalopathy; N17.9 Acute kidney failure, unspecified; M62.82 Rhabdomyolysis; R65.10 Systemic inflammatory response syndrome (SIRS) of non-infectious origin without acute organ dysfunction; N30.00 Acute cystitis without hematuria; R44.3 Hallucinations, unspecified; R45.1 Restlessness and agitation; T68.XXXA Hypothermia, initial encounter; R00.0 Tachycardia, unspecified; T14.8XXA Other injury of unspecified body region, initial encounter; X58.XXXA Exposure to other specified factors, initial encounter; X31.XXXA Exposure to excessive natural cold, initial encounter; Y93.9 Activity, unspecified; Y92.9 Unspecified place or not applicable; Z23 Encounter for immunization
CPT/HCPCS: 36415; 51702; 70450; 71045; 71260; 72125; 74177; 80048; 80053; 80076; 80307; 81001; 81025; 82550; 82553; 83735; 84484; 85025; 85027; 87040; 87086; 90471; 90715; 96361; 96365; 96367; 99291; J0690; J0696; J1650; J3480; J3486; J3490; J7030

== ENCOUNTER → 2018-08-11 | Outpatient (CLI) | payer MEDICARE ==
[2018-08-11 14:04] LABS: ABSOLUTE LYMPHOCYTES (AUTO) 0.7 10^3/uL (0.5-4.7); ABSOLUTE MONOCYTES (AUTO) 0.4 10^3/uL (0.1-1.4); ABSOLUTE NEUT (AUTO) 5.1 10^3/uL (1.7-8.2); HEMATOCRIT 38.3 % (36.0-47.0); HEMOGLOBIN 13.5 g/dL (12.0-15.5); LYMPHOCYTES % (AUTO) 11.6 % (13-45); MEAN CORPUSCULAR HEMOGLOBIN 31.5 pg (27.0-33.4); MEAN CORPUSCULAR HGB CONC 35.3 g/dL (32.0-36.0); MEAN CORPUSCULAR VOLUME 89 fl (80-97); MONOCYTES % (AUTO) 6.9 % (3-13); PLATELET COUNT 212 10^3/uL (150-450); RED BLOOD COUNT 4.29 10^6/uL (3.72-5.28); RED CELL DISTRIBUTION WIDTH 13.8 % (11.5-14.0); SEGMENTED NEUTROPHILS % (AUTO) 81.5 % (42-78); TOTAL CELLS COUNTED % (AUTO) 100 %; WHITE BLOOD COUNT 6.3 10^3/uL (4.0-10.5)
== END ==
LOC: OD 13:11
PROVIDERS: ATTEND Nurse Practitioner Psychiatric/Mental Health
DX: F31.5 Bipolar disorder, current episode depressed, severe, with psychotic features (principal); Z79.899 Other long term (current) drug therapy
CPT/HCPCS: 36415; 85025

== ENCOUNTER → 2018-08-18 | Outpatient (CLI) | payer MEDICARE ==
[2018-08-18 14:56] LABS: ABSOLUTE LYMPHOCYTES (AUTO) 0.8 10^3/uL (0.5-4.7); ABSOLUTE MONOCYTES (AUTO) 0.3 10^3/uL (0.1-1.4); ABSOLUTE NEUT (AUTO) 3.4 10^3/uL (1.7-8.2); HEMATOCRIT 38.6 % (36.0-47.0); HEMOGLOBIN 13.3 g/dL (12.0-15.5); LYMPHOCYTES % (AUTO) 17.1 % (13-45); MEAN CORPUSCULAR HGB CONC 34.5 g/dL (32.0-36.0); MEAN CORPUSCULAR VOLUME 90 fl (80-97); MONOCYTES % (AUTO) 7.1 % (3-13); PLATELET COUNT 203 10^3/uL (150-450); RED BLOOD COUNT 4.29 10^6/uL (3.72-5.28); SEGMENTED NEUTROPHILS % (AUTO) 75.8 % (42-78); TOTAL CELLS COUNTED % (AUTO) 100 %; WHITE BLOOD COUNT 4.4 10^3/uL (4.0-10.5)
== END ==
LOC: OD 14:09
PROVIDERS: ATTEND Nurse Practitioner Psychiatric/Mental Health
DX: F31.5 Bipolar disorder, current episode depressed, severe, with psychotic features (principal); Z79.899 Other long term (current) drug therapy
CPT/HCPCS: 36415; 85025

== ENCOUNTER → 2018-08-25 | Outpatient (CLI) | payer MEDICARE ==
[2018-08-25 14:31] LABS: ABSOLUTE LYMPHOCYTES (AUTO) 0.8 10^3/uL (0.5-4.7); ABSOLUTE MONOCYTES (AUTO) 0.2 10^3/uL (0.1-1.4); ABSOLUTE NEUT (AUTO) 2.8 10^3/uL (1.7-8.2); EOSINOPHILS % (AUTO) 0.1 % (0-6); HEMATOCRIT 40.3 % (36.0-47.0); HEMOGLOBIN 13.8 g/dL (12.0-15.5); LYMPHOCYTES % (AUTO) 22.2 % (13-45); MEAN CORPUSCULAR HEMOGLOBIN 30.8 pg (27.0-33.4); MEAN CORPUSCULAR HGB CONC 34.2 g/dL (32.0-36.0); MEAN CORPUSCULAR VOLUME 90 fl (80-97); MONOCYTES % (AUTO) 5.6 % (3-13); PLATELET COUNT 189 10^3/uL (150-450); RED BLOOD COUNT 4.48 10^6/uL (3.72-5.28); RED CELL DISTRIBUTION WIDTH 13.6 % (11.5-14.0); SEGMENTED NEUTROPHILS % (AUTO) 72.1 % (42-78); TOTAL CELLS COUNTED % (AUTO) 100 %; WHITE BLOOD COUNT 3.8 10^3/uL (4.0-10.5)
== END ==
LOC: OD 13:26
PROVIDERS: ATTEND Nurse Practitioner Psychiatric/Mental Health
DX: F31.5 Bipolar disorder, current episode depressed, severe, with psychotic features (principal); Z79.899 Other long term (current) drug therapy
CPT/HCPCS: 36415; 85025